=== PATIENT | female | born 1955 | race Caucasian/White ===

== ENCOUNTER 2019-11-20 12:10 | Outpatient (CLI) | payer MEDICARE, SELFPAY ==
--- NOTE | ~2019-11-20 | XR_ITS ---
XR lumbar spine 2-3V 11/20/2019 12:40 Indication: Low back pain Procedure: 3 views lumbar spine Comparison: 10/20/2012 Findings: Vertebral body heights are maintained. There is disc narrowing at L4-5 and L5-S1 with endpl ate degenerative change. There is moderate facet hypertrophy at L4-5 and L5-S1. No acute fracture or traumatic malalignment. There is atherosclerosis. Pedicles intact. Sacral foramen are symmetric. Impression: 1: Moderate-severe lumbar spondylosis. Reviewed, dictated and finalized at location A. Impression: 1: Moderate-severe lumbar spondylosis.
--- NOTE | ~2019-11-20 | XR_ITS ---
EXAMINATION: XR_CERV2-3V_CR EXAM DATE: 11/20/2019 12:40 INDICATION: Cervical pain. TECHNIQUE: Cervical spine frontal, lateral, lateral swimmers, and open-mouth odontoid projections. There is no prior study for comparison. FINDINGS: There is no evidence of acute cervical fracture. The odontoid process is intact. Pre-dens space is normal. Prevertebral soft tissue is normal. There are no soft tissue abnormalities identi fied. The vertebral bodies are aligned. There is mild to moderate disc disease at C5-6 and 6-7, m ild at C4-5. There is moderate arthropathy at the mid cervical levels with some amount of neural fora harinder stenosis at C5-6 and 6-7. IMPRESSION: Mid cervical predominant spondylosis. Reviewed, dictated and finalized at location A.
== END 2019-11-20 12:11 | disposition home or self-care (01) ==
LOC: CHSIMG 12:12
PROVIDERS: PCP Internal Medicine; Visit Provider Internal Medicine
DX: M54.5 Low back pain (principal); M54.2 Cervicalgia
CPT/HCPCS: 72040; 72100

== ENCOUNTER 2020-01-29 13:48 | Outpatient (CLI) | payer MEDICARE, SELFPAY ==
[2020-01-29 14:08] LABS: Basophils Absolute Auto 0.04 K/mm3 (0.00-0.10); Basophils Percent Auto 0.5 % (0.0-1.0); Eosinophils Absolute Auto 0.13 K/mm3 (0.02-0.50); Eosinophils Percent Auto 1.5 % (1.0-6.0); Hematocrit 42.8 % (35.0-49.0); Hemoglobin 14.4 g/dL (12.0-15.0); Immature Granulocyte Absolute 0.02 K/mm3 (0.00-0.00); Immature Granulocyte Percent A 0.2 % (0.0-0.0); Lymphocytes Absolute Auto 2.86 K/mm3 (1.10-4.50); Lymphocytes Percent Auto 33.5 % (18.0-42.0); Mean Corpuscular HGB Conc 33.6 g/dL (32.0-36.0); Mean Corpuscular Hemoglobin 31.9 pg (27.0-31.0); Mean Corpuscular Volume 94.7 fL (78.0-102.0); Mean Platelet Volume 11.1 fl (9.2-11.8); Monocytes Absolute Auto 0.54 K/mm3 (0.10-0.90); Monocytes Percent Auto 6.3 % (2.0-11.0); Platelet Count Result 211 K/mm3 (150-420); Red Blood Count 4.52 M/mm3 (4.20-5.40); Red Cell Distribution Width 12.8 % (11.6-14.4); White Blood Count 8.6 K/mm3 (4.8-10.8)
[2020-01-29 14:10] LABS: Appearance Urine Clear (Clear); Bilirubin Urine Negative (Negative); Color Urine Yellow (Yellow); Glucose Urine UA Negative (Negative); Ketones Urine Negative (Negative); Leukocyte Esterase Ur 2+ (Negative); Nitrate Urine Negative (Negative); Protein Urine Negative (Negative); Urobilinogen Urine 0.2 mg/dL (0.2-1.0)
[2020-01-29 14:15] LABS: Add Urine Microscopic? YES; Bacteria Urine 1+ /hpf; Blood Urine Trace-Intact (Negative); RBC Urine 0-2 /hpf (0-2); Squamous Epithelial Cell Urine Rare /hpf (Few)
[2020-01-29 15:46] LABS: Alanine Aminotransferase 23 U/L (14-59); Albumin Level 3.9 g/dL (3.4-5.0); Alkaline Phosphatase 58 U/L (46-116); Anion Gap 6 mmol/L (8-16); Aspartate Amino Transferase 19 U/L (15-37); Bilirubin,Total 0.4 mg/dL (0.00-1.00); Blood Urea Nitrogen 11 mg/dL (7-18); Calcium 8.9 mg/dL (8.5-10.1); Carbon Dioxide 31 mmol/L (21-32); Chloride 103 mmol/L (98-108); Cholesterol 273 mg/dL (0-200); Estimated Glomerular Filt Rate > 60; Glucose 86 mg/dL (70-99); HDL Direct 58 mg/dL (40-60); LDL Cholesterol Calculated 203 mg/dL (<130); Osmolality Calculated 288 mOsm/kg (285-295); Sodium 140 mmol/L (136-145); Thyroid Stimulating Hormone 0.72 uIU/mL (0.36-3.74); Triglycerides 62 mg/dL (0-150)
== END 2020-01-29 13:49 | disposition home or self-care (01) ==
LOC: CHSLAB 13:51
PROVIDERS: PCP Internal Medicine; Visit Provider Internal Medicine
DX: E78.5 Hyperlipidemia, unspecified (principal); M81.0 Age-related osteoporosis without current pathological fracture; Z00.00 Encounter for general adult medical examination without abnormal findings
CPT/HCPCS: 36415; 80053; 80061; 81001; 84443; 85025

== ENCOUNTER 2020-01-31 13:08 | Outpatient (CLI) | payer MEDICARE, SELFPAY ==
--- NOTE | ~2020-01-31 | MM_ITS ---
EXAMINATION: MM screening [facility] BI w brittney HISTORY: Screening TECHNIQUE: Craniocaudal and mediolateral oblique 3-D tomosynthesis images were obtained and synthetic 2-D images were generated. CAD analysis was submitted and interpreted. COMPARISON: Comparison to multiple prior studies sequentially, with oldest reviewed study dated 04/21. BREAST PARENCHYMAL COMPOSITION: There are scattered areas of fibroglandular density. FINDINGS: There is no evidence of suspicious mass, calcification, or architectural distortion to sugg est malignancy in either breast. There has been no suspicious interval change. IMPRESSION: 1. No mammographic evidence of malignancy. 2. Recommend routine screening mammography in one year. BI-RADS Category 1: Negative Reviewed, dictated and finalized at location A.
--- NOTE | ~2020-01-31 | DEXA_ITS ---
BMD(1) Young-Adult(2) Age-Matched(3) Region (g/cm2) T-score Z-score WHO Classification L1 0.878 -2.1 -0.4 Osteopenia L2 0.965 -2.0 -0.3 Osteopenia L3 0.966 -2.0 -0.3 Osteopenia L4 1.252 0.3 2.0 Normal L1-L4 1.039 -1.3 0.4 Osteopenia Trend: L1-L4 Change vs Change vs Measured Age BMD(1) Baseline Previous Date [age]) (g/cm2) (%) (%) 01[age]31/2020 [age] 1.039 1.5 -2.3 04[birth year]06/2016 61.1 1.064 3.9* 3.9* 02/08/2014 59.0 1.024 baseline - * - Indicates significant change based on 95% confidence interval. 1 - Statistically 68% of repeat scans fall within 1SD (+- 0.010 g/cm2 for AP Spine L1-L4) 2 - [place] (Combined NHANES (ages 20-30) / To[employer]Time (ages 20-40)) AP Spine Reference Population (v112) 3 - Matched for Age, Weight (females 25-100 kg), Ethnic 11 - World Health Organization - Definition of Osteoporosis and Osteopenia for Women: Normal = T-score at or above -1.0 SD; Osteopenia = T-score between -1.0 and -2.5 SD; Osteoporosis = T-score at or below -2.5 SD; (WHO definitions only apply when a young healthy Women reference database is used to determine T-scores.) Printed: 01/31/2020 2:07:36 PM (13.60)76:3.00:50.00:12.0 0.00:9.54 0.60x1.05 20.6:%Fat=32.0% 0.00:0.00 0.00:0.00 Filename: [id number] Scan Mode: Standard;OneScan 37.0 REM ENTERPRISE [id number] BMD(1) Young-Adult(2,7) Age-Matched(3) Region (g/cm2) T-score Z-score WHO Classification Neck Left 0.764 -2.0 -0.4 Osteopenia Right 0.782 -1.8 -0.3 Osteopenia Mean 0.773 -1.9 -0.4 Osteopenia Difference 0.017 0.1 0.1 - Total Left 0.815 -1.5 -0.3 Osteopenia Right 0.813 -1.5 -0.3 Osteopenia Mean 0.814 -1.5 -0.3 Osteopenia Difference 0.002 0.0 0.0 - Hip [place] Length Comparison (mm) (Right = 105.3 mm) (Mean = 103.0 mm) (Left = 106.2 mm) Trend: Total Mean Change vs Change vs Measured Age BMD(1) Baseline Previous Date (years) (g/cm2) (%) (%) 01/31/2020 64.9 0.814 -6.2* -6.2* 02/08/2014 59.0 0.868 baseline - * - Indicates significant change based on 95% confidence interval. 1 - Statistically 68% of repeat scans fall within 1SD (+- 0.010 g/cm2 for DualFemur Total) 2 - [place] (Combined NHANES (ages 20-30) / [employer] (ages 20-40)) Femur Reference Population (v112) 3 - Matched for Age, Weight (females 25-100 kg), Ethnic 7 - DualFemur Total T-score difference is 0.0. Asymmetry is None. 11 - World Health Organization - Definition of Osteoporosis and Osteopenia for Women: Normal = T-score at or above -1.0 SD; Osteopenia = T-score between -1.0 and -2.5 SD; Osteoporosis = T-score at or below -2.5 SD; (WHO definitions only apply when a young healthy Women reference database is used to determine T-scores.) Printed: 01/31/2020 2:07:37 PM (13.60); Filename: [id number]; Right Femur; 17.2:%Fat=35.9%; Neck Angle (deg)= 59; Scan Mode: Standard 37.0 uGy; Left Femur; 17.1:%Fat=34.7%; Neck Angle (deg)= 68; Scan Mode: Standard 37.0 uGy mGenerator [id number] Deafuad Kasper, Your patient Emma Tracy completed a BMD test on 01/31/2020 using the mGenerator DXA System (analysis version: 13.60) manufactured by [employer]. The following summarizes the results of our evaluation. PATIENT BIOGRAPHICAL: Name: Timothy
== END 2020-01-31 13:09 | disposition home or self-care (01) ==
PROVIDERS: PCP Internal Medicine; Visit Provider Internal Medicine
DX: E78.5 Hyperlipidemia, unspecified (principal); M81.0 Age-related osteoporosis without current pathological fracture; Z00.00 Encounter for general adult medical examination without abnormal findings; Z12.31 Encounter for screening mammogram for malignant neoplasm of breast
CPT/HCPCS: 77063; 77067; 77080

== ENCOUNTER 2020-03-11 14:58 | Outpatient (RCR) | payer MEDICARE, SELFPAY ==
--- NOTE | 2020-03-11 15:44 | PTOPEVAL ---
Thank you for referring Emma Tracy to [facility].? The patient is scheduled to be seen for therapy? ____x/week for ___ weeks. Please review, sign, date and return this plan of care MAGDI. I agree with and certify that the following plan of care is medically necessary. Referring Physician Date Admitting Provider: Attending Provider: Josr Kasper MD Referring Provider: *PT Outpatient Evaluation Start: 03/11/20 15:06 Freq: Status: Active Protocol: Document 03/11/20 15:05 Josh (Rec: 03/11/20 15:41 [facility] [id number]) Therapy Assessment Status Assessment Status Assessment Status Evaluation Evaluation Information Problem Diagnosis R side radiculopathy Onset 03/03/20 Subjective Information patient reports she began Query Text:As Reported By Patient/ having symptoms about 2 months Family ago. she reports she was walking with her sister when she felt a great pain in her hip and down her R LE and had to sit down. she reports she recently started a steroid dose pack. she reports her pain pain is less in the R LE now due to this. she reports she was having pain from her lower back down the R LE to the outside of the R calf and foot. she reports she has no numbness, but pain reported. she reports she has increased pain with increased time performing standing and walking activites. Prior Level of Function Comments Additional Prior Level of Function patient likes to walk, and Comments prior to 2 months ago was very active and walked several times a day. Pain Assessment Timing of Pain Assessment Timing of Pain Assessment Assessment Pain Scale Pain Scale Used Numeric (1 - 10) Self Report Pain Assessment Right Lower Back Reported Pain Level 2 Pain Radiation Right Leg Pain Frequency Acute,Continuous Lowest Pain Intensity 2 Greatest Pain Intensity 10 Pain Aggravating Factors Exercise/Activity,Walking, Weight Bearing/Standing Pain Score Pain Score 2: Self Report Cervical and Lumbar ROM Lumbar ROM Lumbar Flexion Active Floor Query Text:Hands to: Lumbar Exte
--- NOTE | 2020-03-11 15:52 | PTOPEVAL ---
Thank you for referring Emma Tracy to [facility].? The patient is scheduled to be seen for therapy? ____x/week for ___ weeks. Please review, sign, date and return this plan of care MAGDI. I agree with and certify that the following plan of care is medically necessary. Referring Physician Date Admitting Provider: Attending Provider: Josr Kasper MD Referring Provider: *PT Outpatient Evaluation Start: 03/11/20 15:06 Freq: Status: Active Protocol: Document 03/11/20 15:05 Josh (Rec: 03/11/20 15:41 [facility] [id number]) Therapy Assessment Status Assessment Status Assessment Status Evaluation Evaluation Information Problem Diagnosis R side radiculopathy Onset 03/03/20 Subjective Information patient reports she began Query Text:As Reported By Patient/ having symptoms about 2 months Family ago. she reports she was walking with her sister when she felt a great pain in her hip and down her R LE and had to sit down. she reports she recently started a steroid dose pack. she reports her pain pain is less in the R LE now due to this. she reports she was having pain from her lower back down the R LE to the outside of the R calf and foot. she reports she has no numbness, but pain reported. she reports she has increased pain with increased time performing standing and walking activites. Prior Level of Function Comments Additional Prior Level of Function patient likes to walk, and Comments prior to 2 months ago was very active and walked several times a day. Pain Assessment Timing of Pain Assessment Timing of Pain Assessment Assessment Pain Scale Pain Scale Used Numeric (1 - 10) Self Report Pain Assessment Right Lower Back Reported Pain Level 2 Pain Radiation Right Leg Pain Frequency Acute,Continuous Lowest Pain Intensity 2 Greatest Pain Intensity 10 Pain Aggravating Factors Exercise/Activity,Walking, Weight Bearing/Standing Pain Score Pain Score 2: Self Report Cervical and Lumbar ROM Lumbar ROM Lumbar Flexion Active Floor Query Text:Hands to: Lumbar Exte
--- NOTE | 2020-03-25 11:56 | PCPTNOTE ---
03/25/20-pt cancelled appointment today, states power is out and can not get garage door open. -HM
--- NOTE | 2020-04-10 14:26 | PCRTNOTE ---
04/10/20-pt cancelled secondary to dental procedure and being on pain medication.-RAMIRO
--- NOTE | 2020-04-14 11:45 | PCPTNOTE ---
04/14/20- pt did not show for apt today. - HM
== END 2020-04-24 09:15 | disposition home or self-care (01) ==
LOC: CHSPT 14:58
PROVIDERS: PCP Internal Medicine; Visit Provider Internal Medicine
DX: M54.17 Radiculopathy, lumbosacral region (principal)
CPT/HCPCS: 97012; 97014; 97110; 97140; 97161; G0283

== ENCOUNTER 2020-03-18 18:34 | Emergency (ER) | payer MEDICARE, SELFPAY ==
[2020-03-18 19:12] VITALS: BP 130/98; PULSE 78; RESP 19; TEMP 36.2; O2SAT 98
--- NOTE | 2020-03-18 19:35 | ED.HA ---
HPI - Headache General Chief Complaint: Headache Stated Complaint: RIDDLE for weeks Time Seen by Provider: 03/18/20 19:20 History of Present Illness HPI Narrative: Patient is a 65-year-old female who presents the ER with headache. Reports is been constant for the last 3 to 4 months. It waxes and wanes in intensity. Prior to becoming very intense she will get a visual aura in her left visual field that is small vibrating blurred area. The pain will then be sharp and seems to be at the top of her head and over the center of her forehead. She also has developed some discomfort in the back of her neck near the occipital condyles. Patient has seen her primary care doctor and had an outpatient head CT that was negative. She has been referred to physical therapy for her neck discomfort. She has had no fevers or chills or sweats. No focal numbness or tingling in arm or leg. No focal weakness. Patient does have history of migraines. She has been taking [id number] medications without relief. Related Data Home Medications Medication Instructions Recorded Confirmed aspirin 81 mg tablet,delayed 81 mg PO DAILY 04/23/19 04/23/19 release Allergies Allergy/AdvReac Type Severity Reaction Status Date / Time No Known Allergies Allergy Unverified 04/23/19 09:47 Review of Systems Review of Systems: All systems reviewed & are unremarkable except as noted in HPI and below Constitutional: Constitutional: Denies chills, Denies fever(s) and Denies weakness Eyes: Eyes: Reports change in vision and Denies photophobia ENT: Denies nasal congestion and Denies sore throat Cardiovascular: Cardiovascular: Denies chest pain, Denies rapid heart rate and Denies radiating jaw, neck or arm pain Neurologic: Denies dizziness, Reports headache(s), Denies focal weakness and Denies numbness PMFSH Past Medical History Medical History (Updated 03/18/20 @ 20:33 by Ismael Roque MD) Anxiety and depression Hyperlipemia Migraines Surgical History Surgical History (Updated 05/21/19 @ 08:54 by Rae Donahue NP) History of adenoidectomy (~1966) History of appendectomy (~1964) History of hysterectomy (~1984) History of tonsillectomy (~1966) Family History Family History (Updated 04/23/19 @ 10:12 by Sara De La O) Father Acute myocardial infarction Social History Social History Smoking status: Current every day smoker Alcohol intake: never Gender identity (if verbalized by the patient): Female Exam Narrative: Exam Narrative: GENERAL: Well-appearing, well-nourished, and in no acute distress. HEAD: Normocephalic, atraumatic. EYES: PERRL and EOMI. NECK: Appears well muscular tenderness without spasm. Normal range of motion.. CHEST: Clear to auscultation. No respiratory distress. HEART: Regular rate and rhythm. Normal peripheral pulses. EXTREMITIES: Normal range of motion. No edema. NEURO: Alert and oriented x3. PSYCH: Normal mood and affect. Course Course Emergency Course: Headache resolved with Reglan/Benadryl/Toradol. Discharge home. Vital Signs Vital signs: Vital Signs Temperature 97.2 F L 03/18/20 19:12 Pulse Rate 78 03/18/20 19:12 Respiratory Rate 19 03/18/20 19:12 Blood Pressure 130/98 H 03/18/20 19:12 Pulse Oximetry 98 03/18/20 19:12 Temperature 97.2 F L 03/18/20 19:12 Pulse Rate 78 03/18/20 19:12 Respiratory Rate 19 03/18/20 19:12 Blood Pressure 130/98 H 03/18/20 19:12 Pulse Oximetry 98 03/18/20 19:12 Discharge Plan Discharge Clinical Impression: Migraine Patient Disposition: Home, Self-Care Condition: Stable Instructions: Migraine Headache (ED) Additional Instructions: Return to the ER if you have fever over 100.4 ?F, you lose consciousness, you have a seizure, you have additional concerns. Prescriptions: New uhzazknbkg-jrmjscwfckszl-ebwa [Fioricet] 50-300-40 mg capsule 1 cap PO TID PRN (Reason: pain) Qty: 20 RF: 0 No Action
[2020-03-18] MEDS: KETOROLAC 15 MG/ML VIAL (*BKC) IV PUSH (19:43)
[2020-03-18] MEDS: diphenhydrAMINE HCl INJ 50 MG/ML VIAL 25 MG IV PUSH (19:43)
[2020-03-18] MEDS: METOCLOPRAMIDE HCL INJ 10 MG/2 ML VIAL IV PUSH (19:44)
[2020-03-18] MEDS: SODIUM CHLORIDE 0.9% IV 500 ML 999 ML IV CONT (19:44)
[2020-03-18 20:50] VITALS: BP 132/80; PULSE 88; RESP 18; TEMP 36.7; O2SAT 99
== END 2020-03-18 20:51 | disposition home or self-care (01) ==
PROVIDERS: Emergency Provider Emergency Medicine; PCP Internal Medicine
DX: G43.909 Migraine, unspecified, not intractable, without status migrainosus (principal); Z79.82 Long term (current) use of aspirin; E78.5 Hyperlipidemia, unspecified; F17.200 Nicotine dependence, unspecified, uncomplicated
CPT/HCPCS: 96361; 96374; 96375; 99284; J1200; J1885; J2765; J7040

== ENCOUNTER 2021-01-01 12:24 | Outpatient (CLI) | payer MEDICARE, SELFPAY ==
--- NOTE | ~2021-01-01 | XR_ITS ---
EXAMINATION: XR hip RT min 2V DATE: 01/01/2021 14:14 INDICATION: Right hip pain. TECHNIQUE: 2 views of right hip were obtained. COMPARISON: Right hip radiographs 10/20/2012 FINDINGS: Bone alignment is normal. No fracture. Right hip joint space is normal. IMPRESSION: 1. Normal right hip. Reviewed, dictated and finalized at location A. IMPRESSION: 1. Normal right hip.
--- NOTE | ~2021-01-01 | CT_ITS ---
EXAMINATION: CT lung screening DATE: 01/01/2021 12:53 INDICATION: Lung cancer screening/ tobacco dependence NO COMPLAINTS/DOES SMOKE/NO BP ISSUES TECHNIQUE: Computed tomography (CT) of the chest was performed without intravenous contrast. Addition al 3D reconstructions utilizing coronal maximum intensity projection (MIP) were performed. Automated exposure control and iterative reconstruction technique were employed. The dose-length product was 62 .28 mGy-cm. COMPARISON: None FINDINGS: Mild to moderate upper lung predominant emphysema. Biapical pleural-parenchymal scarring with calcifi cations. No other suspicious pulmonary nodules, pneumonia, pulmonary edema or other pulmonary infiltr ates. No pleural effusion. Heart size is normal. Atherosclerotic coronary artery calcification. Thora cic aorta is normal in caliber. No pathologically enlarged thoracic lymphadenopathy. Mild thoracic de xtroscoliosis with mild spondylosis. IMPRESSION: 1. Lung-RADS category 2: Benign appearance or behavior. Continue annual screening with noncontrast lo w-dose chest CT in 12 months. 2. Mild to moderate emphysema. Reviewed, dictated and finalized at location A. IMPRESSION: 1. Lung-RADS category 2: Benign appearance or behavior. Continue annual screeni ng with noncontrast low-dose chest CT in 12 months. 2. Mild to moderate emphysema.
[2021-01-01 13:59] LABS: Basophils Absolute Auto 0.04 K/mm3 (0.00-0.10); Basophils Percent Auto 0.4 % (0.0-1.0); Eosinophils Absolute Auto 0.09 K/mm3 (0.02-0.50); Hematocrit 42.9 % (35.0-42.0); Hemoglobin 14.4 g/dL (11.7-13.8); Immature Granulocyte Absolute 0.02 K/mm3 (0.00-0.00); Immature Granulocyte Percent A 0.2 % (0.0-0.0); Lymphocytes Absolute Auto 3.11 K/mm3 (1.10-4.50); Lymphocytes Percent Auto 34.8 % (18.0-42.0); Mean Corpuscular HGB Conc 33.6 g/dL (32.0-36.0); Mean Corpuscular Hemoglobin 31.2 pg (27.0-31.0); Mean Corpuscular Volume 93.1 fL (78.0-102.0); Mean Platelet Volume 10.7 fl (9.2-11.8); Monocytes Absolute Auto 0.53 K/mm3 (0.10-0.90); Monocytes Percent Auto 5.9 % (2.0-11.0); Neutrophils Absolute Auto 5.2 K/mm3 (1.7-7.2); Neutrophils Percent Auto 57.7 % (50.0-70.0); Platelet Count Result 213 K/mm3 (150-420); Red Blood Count 4.61 M/mm3 (4.20-5.40); White Blood Count 8.9 K/mm3 (4.8-10.8)
[2021-01-01 14:07] LABS: Add Urine Microscopic? YES; Appearance Urine Clear (Clear); Bilirubin Urine Negative (Negative); Blood Urine 1+ (Negative); Color Urine Light Yellow (Yellow); Glucose Urine UA Negative (Negative); Ketones Urine Negative (Negative); Leukocyte Esterase Ur 1+ (Negative); Nitrate Urine Negative (Negative); Protein Urine Negative (Negative); Specific Grav Ur <= 1.005 (1.010-1.020); Urobilinogen Urine 0.2 mg/dL (0.2-1.0)
[2021-01-01 14:14] LABS: Bacteria Urine None seen /hpf; RBC Urine 0-2 /hpf (0-2); Squamous Epithelial Cell Urine Occasional /hpf (Few); WBC Urine 0-3 /hpf (0-3)
[2021-01-01 14:42] LABS: Alanine Aminotransferase 26 U/L (14-59); Albumin Level 4.1 g/dL (3.4-5.0); Alkaline Phosphatase 55 U/L (46-116); Anion Gap 11 mmol/L (8-16); Aspartate Amino Transferase 17 U/L (15-37); Bilirubin,Total 0.4 mg/dL (0.00-1.00); Blood Urea Nitrogen 10 mg/dL (7-18); Calcium 9.4 mg/dL (8.5-10.1); Carbon Dioxide 28 mmol/L (21-32); Chloride 103 mmol/L (98-108); Cholesterol 197 mg/dL (0-200); Estimated Glomerular Filt Rate > 60; Glucose 107 mg/dL (70-99); HDL Direct 64 mg/dL (40-60); LDL Cholesterol Calculated 119 mg/dL (<130); Osmolality Calculated 293 mOsm/kg (285-295); Potassium 3.9 mmol/L (3.5-5.1); Sodium 142 mmol/L (136-145); Thyroid Stimulating Hormone 0.92 uIU/mL (0.36-3.74); Total Protein 7.3 g/dL (6.4-8.2); Triglycerides 72 mg/dL (0-150)
[2021-01-01 14:54] LABS: CRP < 0.5 mg/dL (0.0-0.9)
== END 2021-01-01 12:25 | disposition home or self-care (01) ==
PROVIDERS: PCP Internal Medicine; Visit Provider Internal Medicine
DX: E78.5 Hyperlipidemia, unspecified (principal); F41.9 Anxiety disorder, unspecified; M25.551 Pain in right hip; Z12.2 Encounter for screening for malignant neoplasm of respiratory organs; Z87.891 Personal history of nicotine dependence
CPT/HCPCS: 36415; 71271; 73502; 80053; 80061; 81001; 84443; 85025; 86140

== ENCOUNTER 2021-01-05 14:12 | Outpatient (CLI) | payer MEDICARE, SELFPAY ==
[2021-01-05 14:25] LABS: Appearance Urine Clear (Clear); Bilirubin Urine Negative (Negative); Color Urine Light Yellow (Yellow); Glucose Urine UA Negative (Negative); Ketones Urine Negative (Negative); Leukocyte Esterase Ur Negative (Negative); Nitrate Urine Negative (Negative); Protein Urine Negative (Negative); Specific Grav Ur <= 1.005 (1.010-1.020); Urobilinogen Urine 0.2 mg/dL (0.2-1.0); pH Urine 6.5 (5.0-8.0)
[2021-01-05 14:43] LABS: Add Urine Microscopic? YES; Blood Urine Trace-lysed (Negative)
[2021-01-05 14:44] LABS: Bacteria Urine Trace /hpf; RBC Urine 0-2 /hpf (0-2); Squamous Epithelial Cell Urine Rare /hpf (Few); WBC Urine 0-3 /hpf (0-3)
== END 2021-01-05 14:13 | disposition home or self-care (01) ==
PROVIDERS: PCP Internal Medicine; Visit Provider Internal Medicine
DX: R31.9 Hematuria, unspecified (principal)
CPT/HCPCS: 81001; 87086; 88112

== ENCOUNTER 2021-04-17 08:47 | Outpatient (CLI) | payer MEDICARE, SELFPAY | END 2021-04-17 08:48 | disposition home or self-care (01) | LOC: CHSCARD 08:49 | PROVIDERS: PCP Internal Medicine; Visit Provider Internal Medicine | DX: R05.9 Cough, unspecified (principal); F17.200 Nicotine dependence, unspecified, uncomplicated | CPT/HCPCS: 94060; 94726; 94729; 95012 ==

== ENCOUNTER → 2021-09-17 13:49 | Outpatient (CLI) | payer MEDICARE, SELFPAY ==
--- NOTE | ~2021-09-17 | MM_ITS ---
EXAMINATION: MM screening [facility] BI w brittney HISTORY: Screening mammogram TECHNIQUE: Craniocaudal and mediolateral oblique 3-D tomosynthesis images were obtained and synthetic 2-D images were generated. CAD analysis was submitted and interpreted. COMPARISON: 01/31/2020, 01/22/2019, 09/08/2017 BREAST PARENCHYMAL COMPOSITION: There are scattered areas of fibroglandular density. FINDINGS: There is no suspicious mass, calcification, or architectural distortion to suggest malignan cy in either breast. There has been no suspicious interval change. IMPRESSION: 1. No mammographic evidence of malignancy. 2. Recommend routine screening mammography in one year. BI-RADS Category 1: Negative Reviewed, dictated and finalized at location A.
== END ==
PROVIDERS: PCP Internal Medicine; Visit Provider Internal Medicine
DX: Z12.31 Encounter for screening mammogram for malignant neoplasm of breast (principal)
CPT/HCPCS: 77063; 77067

== ENCOUNTER 2021-11-25 16:25 | Observation (INO) | payer MEDICARE, SELFPAY ==
--- NOTE | ~2021-11-25 | MR_ITS ---
EXAMINATION: MR brain/brain stem wo/w con DATE: 11/26/2021 08:18 INDICATION: Transient ischemic attack. Right facial weakness. Slurred speech. TECHNIQUE: Magnetic resonance imaging (MRI) of the brain and brainstem was performed without and with 12 mL MultiHance intravenous contrast. COMPARISON: Brain MRI 08/27/2017, head CT 11/25/2021 FINDINGS: There are scattered areas of nonspecific increased T2-weighted signal intensity in the cere bral white matter. There is no intracranial hemorrhage, acute infarction, or abnormal intracranial ma ss lesion. The ventricles are normal in size. The orbits are normal. There is mild mucosal thickening in the ethmoid sinuses. The mastoid air cells are normal. IMPRESSION: 1. Moderate nonspecific cerebral white matter disease, which likely represents chronic small vessel i schemic disease, worsened from 08/27/2017. Reviewed, dictated and finalized at location A. IMPRESSION: 1. Moderate nonspecific cerebral white matter disease, which likely represents chronic small vessel ischemic disease, worsened from 08/27/2017.
--- NOTE | ~2021-11-25 | XR_ITS ---
EXAMINATION: XR chest 1V portable 11/25/2021 16:46 INDICATION: Slurred speech. Dyspnea. PROCEDURE: AP portable chest COMPARISON: 12/30/2016 FINDINGS: The lungs are clear. The cardiomediastinal silhouette is within normal limits. There are no pleural effusions. There is no pneumothorax suspected. Generalized osteopenia. IMPRESSION: 1: NO ACUTE CARDIOPULMONARY DISEASE. Reviewed, dictated and finalized at location B.
--- NOTE | ~2021-11-25 | US_ITS ---
EXAMINATION: US carotid duplex BI DATE: 11/26/2021 08:39 INDICATION: Right facial weakness. Slurred speech. Transient ischemic attack. TECHNIQUE: Grayscale, color Doppler, and pulsed Doppler images of the cervical carotid arteries were obtained. The degree of vessel stenosis is placed in one of the following categories: normal, <50%, 5 0-69%, >=70% but less than near-occlusion, near-occlusion, or total occlusion. Note that percent sten osis relative to normal distal artery lumen diameter is indirectly measured from velocity measurement s as described by Brodie, et al. Radiology 2003; 229:340-346. COMPARISON: None. FINDINGS: RIGHT: The right common carotid artery (CCA) peak systolic velocity (PSV) is 79 cm/s. The right internal car otid artery (ICA) PSV is 98 cm/s. The right ICA end-diastolic velocity (EDV) is 25 cm/s. The right IC A/CCA PSV ratio is 1.2. Grayscale and color Doppler images yield an estimate of <50% diameter reducti on from plaque in the ICA. There is antegrade flow in the right vertebral artery. LEFT: The left CCA PSV is 68 cm/s. The left ICA PSV is 164 cm/s. The left ICA EDV is 30 cm/s. The left ICA/ CCA PSV ratio is 2.4. Grayscale and color Doppler images yield an estimate of <50% diameter reduction from plaque in the ICA. There is antegrade flow in the left vertebral artery. IMPRESSION: 1. <50% stenosis in the right internal carotid artery. 2. <50% stenosis in the left internal carotid artery. Reviewed, dictated and finalized at location A.
--- NOTE | ~2021-11-25 | CT_ITS ---
EXAMINATION: CT brain wo con DATE: 11/25/2021 16:36 INDICATION: Slurred speech beginning at 1600 hours today TECHNIQUE: Computed tomography (CT) of the head was performed without intravenous contrast. The mA wa s adjusted according to patient size. Iterative reconstruction technique was employed. Exam dose: 60 5.33 mGy-cm total exam DLP. COMPARISON: 09/05/2017 CT head FINDINGS: Vertebral, basilar and bilateral carotid siphon internal carotid artery calcifications are noted. There is patchy nonspecific diminished attenuation of the cerebral white matter, likely due to chronic small vessel ischemic changes. No intracranial mass lesion or hemorrhage or cerebrovascular accident is noted. Normal ventricular si ze. No midline shift or mass effect effect. No subdural or epidural hematoma. No skull fracture or bone destruction of the cranial vault. Included mastoid air cells and paranasal sinuses are normally developed and aerated. IMPRESSION: Cerebral atherosclerosis and chronic small vessel ischemic changes of the cerebral white matter No acute intracranial finding Dr. Madrid telephoned the CT head report on 11/25/2021 at 1640 hours to emergency room physician Dr. Garo brothers. Reviewed, dictated and finalized at Location [facility]. Reviewed, dictated and finalized at location A. IMPRESSION: Cerebral atherosclerosis and chronic small vessel ischemic changes of the cerebral white matter No acute intracranial finding Dr. Madrid telephoned the CT head report on 11/25/2021 at 1640 hours to emergency r oom physician Dr. Esparza.
--- NOTE | 2021-11-25 16:28 | ECG_ITS ---
Measurements Intervals [place] Rate: 70 P: 73 WV: 126 QRS: 55 QRSD: 93 T: 65 QT: 402 QTc: 434 Interpretive Statements SINUS RHYTHM POSSIBLE RIGHT VENTRICULAR CONDUCTION DELAY [RSR (QR) IN V1/V2] NO PREVIOUS ECG AVAILABLE FOR COMPARISON Electronically Signed On 11-25-2021 22:18:59 CDT by Haydee Mack M.D.
[2021-11-25 16:35] VITALS: BP 110/60; PULSE 69; RESP 19; TEMP 36.2; O2SAT 98
[2021-11-25 16:35] LABS: Glucose Point of Care 70 mg/dl (65-105)
[2021-11-25 16:41] LABS: Basophils Percent Auto 0.5 % (0.2-1.2); Eosinophils Absolute Auto 0.1 K/mm3 (0-0.3); Eosinophils Percent Auto 1.3 % (0-4.4); Hematocrit 44.4 % (37.0-47.0); Hemoglobin 14.6 g/dL (12.0-15.0); Immature Granulocyte Absolute 0.02 K/mm3 (0.00-0.031); Immature Granulocyte Percent A 0.2 % (0-0.5); Lymphocytes Absolute Auto 3.13 K/mm3 (0.9-3.2); Lymphocytes Percent Auto 36.4 % (18.3-44.2); Mean Corpuscular HGB Conc 32.9 g/dl (32-36); Mean Corpuscular Hemoglobin 31.7 pg (26-34); Mean Corpuscular Volume 96.3 fl (80-100); Mean Platelet Volume 10.8 fl (7.4-10.4); Monocytes Absolute Auto 0.6 K/mm3 (0.1-0.6); Monocytes Percent Auto 7.3 % (2.6-8.5); Neutrophils Absolute Auto 4.7 K/mm3 (1.3-6.7); Neutrophils Percent Auto 54.3 % (45.5-73.1); Platelet Count Result 227 k/mm3 (150-375); Red Blood Count 4.61 M/mm3 (4.2-5.4); Red Cell Distribution Width 12.8 % (11.5-14.5); White Blood Count 8.6 K/mm3 (4.5-10.0)
[2021-11-25 16:42] VITALS: BP 110/60; PULSE 75; RESP 18
[2021-11-25 16:51] LABS: Alanine Aminotransferase 13 U/L (6-35); Albumin Level 4.6 g/dL (3.5-5.1); Alkaline Phosphatase 58 U/L (38-126); Anion Gap 7 mmol/L (8-16); Aspartate Amino Transferase 20 U/L (14-36); Bilirubin,Total 0.3 mg/dL (0.2-1.3); Blood Urea Nitrogen 11 mg/dL (7-17); Calcium 8.8 mg/dL (8.4-10.2); Carbon Dioxide 28 mmol/L (22-30); Chloride 102 mmol/L (98-107); Estimated CRCL calculation 50 ml/min; Estimated Glomerular Filt Rate > 60; Glucose 78 mg/dL (65-110); Potassium 3.7 mmol/L (3.4-5.0); Sodium 137 mmol/L (137-145)
[2021-11-25 16:52] LABS: INR 0.9; Partial Thromboplastin Time 33.4 SECONDS (22.3-36.8); Prothrombin Time 11.5 Seconds (11.1-14.7)
[2021-11-25 17:02] LABS: Troponin I < 0.012 ng/mL (0.000-0.034)
--- NOTE | 2021-11-25 17:27 | PC.NURSE ---
dinner tray ordered
[2021-11-25 17:37] VITALS: BP 111/61; PULSE 71; RESP 18; O2SAT 100
--- NOTE | 2021-11-25 17:41 | ED.NEUROSD ---
HPI - Neuro Symptoms/Deficit General Chief Complaint: Suspected CVA Stated Complaint: difficulty talking at 1600 Source: patient Mode of arrival: wheelchair Limitations: no limitations History of Present Illness HPI Narrative: 66-year-old with a history of anxiety, hyperlipidemia, migraine headaches brought in by daughter with complaints of right-sided facial droop. Patient states that she was face timing with her daughter, daughter noticed her speech was slurred and patient was unable to get the words out. She also states that her right side of her face was drooping. She denies any headache, blurred vision or weakness Related Data Home Medications Medication Instructions Recorded Confirmed aspirin 81 mg tablet,delayed 81 mg PO DAILY 04/23/19 04/23/19 release Allergies Allergy/AdvReac Type Severity Reaction Status Date / Time cimetidine [From Everyday[employer]me] Allergy Swelling Verified 11/25/21 16:39 of Lip/Tongue/Throat Penicillins AdvReac Blister Verified 11/25/21 16:39 Review of Systems Review of Systems: All systems reviewed & are unremarkable except as noted in HPI and below Constitutional: Constitutional: Reports no additional constitutional complaints Eyes: Eyes: Reports no additional eye complaints ENT: Reports system reviewed and no additional complaints, except as documented Cardiovascular: Cardiovascular: Reports no additional cardiovascular complaints Respiratory: Respiratory: Reports no additional respiratory complaints Gastrointestinal: Gastrointestinal: Reports no additional gastrointestinal complaints Musculoskeletal: Musculoskeletal: Reports no additional musculoskeletal complaints Neurologic: Reports as per HPI PMFSH Past Medical History Medical History Anxiety and depression Hyperlipemia Migraines Surgical History Surgical History History of adenoidectomy (~1966) History of appendectomy (~1964) History of hysterectomy (~1984) History of tonsillectomy (~1966) Family History Family History Father Acute myocardial infarction Social History Social History Smoking status: Current every day smoker Alcohol intake: never Gender identity (if verbalized by the patient): Female Exam Narrative: GENERAL: Well-appearing, well-nourished, and in no acute distress. HEAD: Normocephalic, atraumatic. EYES: PERRLA and EOMI. ENT: Nares clear, no rhinorrhea or epistaxis. Mucous membranes moist. NECK: Supple. CHEST: Clear to auscultation. No respiratory distress. HEART: Regular rate and rhythm. No murmur heard. Normal peripheral pulses. ABDOMEN: Soft, nontender, nondistended, normal active bowel sounds. EXTREMITIES: Normal range of motion. No edema. SKIN: Warm, dry, no rash. NEURO: No focal deficits. Alert and oriented x3. PSYCH: Normal mood and affect. Course Course Emergency Course: Patient upon arrival is wide awake alert ambulatory with no facial droop CT scan was done immediately with no acute findings her NIH score is 0 upon arrival and remained 0 I did inform patient and family about her lab work, CT findings agreed for admission. Discussed with [place] agreed to admit the patient for observation Vital Signs Vital signs: Vital Signs Temperature 36.2 C L 11/25/21 16:35 Pulse Rate 69 11/25/21 16:35 Respiratory Rate 19 11/25/21 16:35 Blood Pressure 110/60 11/25/21 16:35 Pulse Oximetry 98 11/25/21 16:35 Temperature 36.2 C L 11/25/21 16:35 Pulse Rate 71 11/25/21 17:37 Respiratory Rate 18 11/25/21 17:37 Blood Pressure 111/61 11/25/21 17:37 Pulse Oximetry 100 11/25/21 17:37 MDM - Neuro Symptoms/Deficit Differential Diagnosis Differential diagnosis: Likely cerebrovascular accident and transient cerebral ischemia Medic
[2021-11-25 18:41] VITALS: BP 125/72; PULSE 71; RESP 18; O2SAT 100
--- NOTE | 2021-11-25 19:24 | ADMGEN ---
This patient, Emma Strauss, was admitted to 2 Medical Room 242-. Patient/family oriented to hospital policies and general routines including ID bracelet, bed and alarms, visiting hours, pain management, procedures, bathroom and other care routines, personal items, smoking policy, room service/diet, and visiting hours. Information on how to activate the Rapid Response Team has been discussed. Patient/Family are encouraged to report perceived risks to care and to ask questions if they do not understand what they are told or what they should do.
[2021-11-25] MEDS: SODIUM CHLORIDE 0.9% IV 1,000 ML 75 ML IV CONT (19:38)
[2021-11-25 20:00] VITALS: PULSE 73
[2021-11-25 22:00] VITALS: BP 104/77; PULSE 81; RESP 18; TEMP 36.6; O2SAT 95
[2021-11-26] VITALS: PULSE 63
[2021-11-26 04:00] VITALS: PULSE 65
--- NOTE | 2021-11-26 05:07 | PM.IMHP ---
H&P: HPI History of Present Illness Date/Time: 11/26/21 05:07 Chief Complaint: Garbled speech Narrative: 66-year-old female with past medical history of migraines, anxiety, depression and hyperlipidemia who presented to the ER from home with history of garbled speech S transient in nature. Patient reported that she does not know if she was having any symptoms before he talked to her daughter at 4:00 p.m. but when her daughter called at 4:00 p.m. she could not understand the patient. She stated that she was slurring her words in her speech was garbled. She did not have any difficulty finding her words she does could not get them out clearly. Her symptoms persisted until just before she came to the ER. She did not have any associated headache. The patient denied having a facial droop but the patient's daughter reported that she thought the patient's right side of her face was drooping. She has not had any headache, blurred vision or weakness. She reports that she occasionally see some weekly lines in arrive before she has a migraine. But she has not had any symptoms of her usual migraine. She denies any localizing weakness. She has been ambulating without difficulty. She denies any difficulty swallowing or coughing. She did have 1 episode of similar symptoms in the past. She reports that she recently lost her significant other of 13 years in November after a 4 year dover with lung cancer. She was his primary caregiver. She has been having some depressive symptoms and acute grieving since that time. She reports that she does want to quit smoking but did not tolerate Chantix. She reported that Chantix made her mean and aggressive. Review of Systems Review of Systems: 12 systems were reviewed with pertinent positives and negatives per HPI. Except as documented in the HPI, all other systems were reviewed and are negative. [facility] Past Medical History Medical History (Updated 11/26/21 @ 08:07 by Ann Staples DO) Anxiety and depression COPD (chronic obstructive pulmonary disease) Hyperlipemia Migraines Osteopenia Postmenopausal atrophic vaginitis Surgical History Surgical History (Updated 11/26/21 @ 07:56 by Ann Staples DO) History of adenoidectomy (~1966) History of appendectomy (~1964) History of hysterectomy (~1984) Due to endometriosis with associated unilateral oophorectomy History of tonsillectomy (~1966) Family History Family History Father Acute myocardial infarction Social History Social History (Updated 11/26/21 @ 08:00 by Ann Staples DO) Social History: She lives at home with her small dog. She is . She raised 2 sons and 1 daughter. She is independent activities of daily living. She continues to smoke a pack of cigarettes per day and has done so since she was teenager. She denies any significant alcohol use. 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 Code status: Full code Smoking packs per day: 1 Smoking cigarettes per day: 20.0 Years smoked: 50 Smoking pack-years: 50.00 Smoking status: Current every day smoker Alcohol intake: never Substance use: never Gender identity (if verbalized by the patient): Female Spiritual care concerns: No Meds Home Medications and Allergies Home Medications Medication Instructions Recorded Confirmed Type cholecalciferol (vitamin D3) 25 1,000 unit PO DAILY #90 caps 04/23/19 11/25/21 Rx mcg (1,000 unit) capsule escitalopram oxalate 20 mg tablet 20 mg PO DAILY #90 tabs 04/23/19 11/25/21 Rx (Lexapro) pravastatin 10 mg tablet 10 mg PO DAILY #90 tabs 04/23/19 11/25/21 Rx alprazolam 0.5 mg tablet 0.25 mg PO BID PRN anxiety 11/25/21 11/25/21 History Allergies Allergy/AdvReac Type Severity Reaction Status Date / Time cimetidine [From [facility]] Allergy Swelling Verified 11/25/21 16:39 of Lip/Tongue/Throat Penicillins AdvReac Blister Verified 11/25/21
[2021-11-26 06:00] VITALS: BP 118/54; PULSE 69; RESP 16; TEMP 36.2; O2SAT 94
[2021-11-26] MEDS: ASPIRIN 81 MG CHEWABLE TABLET PO (08:50)
[2021-11-26] MEDS: PRAVASTATIN SODIUM 10 MG TABLET PO (08:50)
[2021-11-26] MEDS: ESCITALOPRAM OXALATE 10 MG TABLET 20 MG PO (08:50)
[2021-11-26] MEDS: SODIUM CHLORIDE 0.9% IV 1,000 ML 75 ML IV CONT (08:51)
[2021-11-26] MEDS: CHOLECALCIFEROL 1,000 UNITS TABLET 1000 UNITS PO (08:51)
--- NOTE | 2021-11-26 12:00 | WPDNEURCNPN ---
Assessment and Plan Assessment and plan (1) TIA (transient ischemic attack): Code(s): G45.9 - Transient cerebral ischemic attack, unspecified Status: Acute Plan TIA with negative MRI of the brain and observed neurological deficit by the family member present negative evaluation as well he be continued on aspirin Consult date: 11/26/21 Time Seen: 10:00 Reason for consult: Possible cerebrovascular accident HPI: Emma Strauss is a 66 year old female admitted to the hospital through the emergency room where she came with the complaints of difficulties in speech without any other limitations but in addition to history of 1. Anxiety 2. Hyperlipidemia 3. Migraine headaches she was brought in by her daughter with the complaints of right-sided facial droop and as per the information available she was face timing with her daughter when she noted her speech was slurred she was unable to get the words out and her right side of the face was drooped she had no associated headache blurred vision or weakness of 1 side or other side. She has been taking aspirin 81 mg daily she does have ongoing history of anxiety and depression with migraines and hyperlipidemia, initial exam by the ER personnel was normal including the vital signs, routine lab was also normal, EKG was without atrial fibrillation x-ray was negative and the CT scan of the head revealed only chronic small vessel ischemic changes of cerebral white matter, her stroke scale was only 1, subsequently she has had Doppler study of the carotid which is normal that is less than 50% stenosis of the bilateral internal carotid arteries and MRI of the brain documented no territorial stroke epidural subdural bleed Review of Systems Review of Systems: All systems reviewed & are unremarkable except as noted in HPI and below PMFSH Past Medical History Medical History Anxiety and depression COPD (chronic obstructive pulmonary disease) Hyperlipemia Migraines Osteopenia Postmenopausal atrophic vaginitis Surgical History Surgical History History of adenoidectomy (~1966) History of appendectomy (~1964) History of hysterectomy (~1984) Due to endometriosis with associated unilateral oophorectomy History of tonsillectomy (~1966) Family History Family History Father Acute myocardial infarction Social History Social History Social History: She lives at home with her small dog. She is . She raised 2 sons and 1 daughter. She is independent activities of daily living. She continues to smoke a pack of cigarettes per day and has done so since she was teenager. She denies any significant alcohol use. 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 Code status: Full code Smoking packs per day: 1 Smoking cigarettes per day: 20.0 Years smoked: 50 Smoking pack-years: 50.00 Smoking status: Current every day smoker Alcohol intake: never Substance use: never Gender identity (if verbalized by the patient): Female Spiritual care concerns: No Meds Home Medications and Allergies Home Medications Medication Instructions Recorded Confirmed Type cholecalciferol (vitamin D3) 25 1,000 unit PO DAILY #90 caps 04/23/19 11/25/21 Rx mcg (1,000 unit) capsule escitalopram oxalate 20 mg tablet 20 mg PO DAILY #90 tabs 04/23/19 11/25/21 Rx (Lexapro) pravastatin 10 mg tablet 10 mg PO DAILY #90 tabs 04/23/19 11/25/21 Rx alprazolam 0.5 mg tablet 0.25 mg PO BID PRN anxiety 11/25/21 11/25/21 History Allergies Allergy/AdvReac Type Severity Reaction Status Date / Time cimetidine [From [facility]] Allergy Swelling Verified 11/25/21 16:39 of Lip/Tongue/Throat Penicillins AdvReac Blister Verified 11/25/21 16:39 Vital Signs Vital Signs - 24 hr 11/25/21 16:35 11/25/21
[2021-11-26 14:40] VITALS: BP 108/47; PULSE 65; RESP 16; TEMP 36.7; O2SAT 97
[2021-11-26 15:37] LABS: Cholesterol 183 mg/dL (0-200); HDL Direct 48 mg/dL; Triglycerides 97 mg/dL (<150)
[2021-11-26 15:47] LABS: LDL Cholesterol Direct 94 mg/dL
[2021-11-26 15:54] LABS: Hemoglobin A1C 5.2 % (<5.7)
--- NOTE | 2021-11-26 16:09 | PM.DS ---
DS: Admitting Diagnosis Discharge Date 11/26/2021 Admitting Diagnosis TIA DS: Discharge Diagnosis Discharge Diagnosis (1) TIA (transient ischemic attack): Code(s): G45.9 - Transient cerebral ischemic attack, unspecified Status: Acute Assessment and Plan: Patient had symptoms concerning for TIA. Stated her speech ?just was not coming out right. Neurologic status was at baseline on presentation to the ED and during admission. NIH score [address] showed no acute intracranial findings, carotid Doppler with <50% stenosis of the bilateral internal carotid arteries, brain MRI with no acute findings. She was seen in consultation by Neurology. Symptoms felt to be consistent with TIA. ABCD2 score = 3. She was started on aspirin 81 mg daily. Lipid panel reviewed. Continue pravastatin. Discussed dietary and lifestyle modifications. (2) Tobacco use disorder, continuous: Code(s): F17.209 - Nicotine dependence, unspecified, with unspecified nicotine-induced disorders Status: Acute Assessment and Plan: She smokes 1 pack per day. She is motivated to quit smoking, however she is actively grieving the loss of her significant other and therefore not the ideal time to begin smoking cessation journey as she is less likely to be successful given her current stressors. She was unsuccessful with Chantix. She would like to try Wellbutrin. She should follow-up with her primary care provider to determine the best time to initiate this regimen. She was educated on smoking cessation for 5 minutes. 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 She is grieving this loss admits that this has been stressful for her, especially with her history of depression and anxiety. She does report that she has good family support to help her through this time. She specifically denies thoughts of harming herself. Continue escitalopram. DS: Summary Hospital Course Hospital Course: Date of admission: 11/25/2021 Date of discharge: 11/26/2021 Emma Tracy is a 66-year-old female with history of anxiety, depression, hyperlipidemia, COPD who presented to the emergency department on 11/25/2021 with complaints of slurred speech in possibly right-sided facial droop. On presentation to the ED, her vital signs are stable, laboratory workup unremarkable, NIH score was 0, and head CT showed no acute findings. She was admitted to the hospitalist service for further evaluation and management and was seen in consultation by Neurology. Please see above for further details. The patient was back at her baseline and was very eager for discharge home. Given overall improvement, she was determined to no longer require inpatient care and was discharged in hemodynamically stable condition on 11/26/2021. Discussed with the patient worrisome signs and symptoms for which to return and she was educated on her medications. She will follow-up with her primary care provider in 1 week. 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
== END 2021-11-26 17:05 | disposition home or self-care (01) ==
LOC: ANHED 17:47 → ANH2MED 18:26
PROVIDERS: Physician Assistant; Admitting Provider Student in an Organized Health Care Education/Training Program; Emergency Provider Family Medicine; PCP Internal Medicine; Visit Provider Internal Medicine
DX: G45.9 Transient cerebral ischemic attack, unspecified (principal); E78.5 Hyperlipidemia, unspecified; Z79.82 Long term (current) use of aspirin; F43.21 Adjustment disorder with depressed mood; F17.210 Nicotine dependence, cigarettes, uncomplicated
CPT/HCPCS: 36415; 70450; 70553; 71045; 80053; 80061; 82948; 83036; 84484; 85025; 85610; 85730; 93005; 93880; 96360; 96361; 99285; A9270; A9577; G0378; J7030

== ENCOUNTER → 2022-03-11 11:48 | Outpatient (CLI) | payer MEDICARE, SELFPAY ==
--- NOTE | ~2022-03-11 | DEXA_ITS ---
Bone Density Report Name: WIN WILLIAMSON Age: 67 Sex: Female Ethnicity: White Date of : 1955 Indication: postmenopausal; screening for osteoporosis; parental hip fracture; hysterectomy; Referring Provider: Josr Kasper Study: Bone densitometry was performed. Exam Date: March 11, 2022 Accession number: [id number] Bone Density: Region BMD T-score Z-score Classification AP Spine (L1-L4) 0.853 -1.8 0.1 Osteopenia Femoral Neck (Left) 0.592 -2.3 -0.7 Osteopenia Total Hip (Left) 0.748 -1.6 -0.3 Osteopenia Femoral Neck (Right) 0.621 -2.1 -0.4 Osteopenia Total Hip (Right) 0.761 -1.5 -0.1 Osteopenia Total Hip Mean 0.755 -1.6 -0.2 Osteopenia World Health Organization criteria for BMD impression classify patients as: Normal (T-score at or above -1.0), Osteopenia (T-score between -1.0 and -2.5), or Osteoporosis (T-score at or below -2.5). 10-year Fracture Risk(1): Major Osteoporotic Fracture 20% Hip Fracture 5.4% Reported Risk Factors: [place] (), Neck BMD=0.592, BMI=22.4, parental fracture, smoking (1) FRAX(R) Version 3.08. Fracture probability calculated for an untreated patient. Fracture probability may be lower if the patient has received treatment. Clinical Information Provided by Patient: Parent has had a hip fracture Smokes Has used the following medications: Vitamin D Has the following medical conditions: Hysterectomy Patient maximum height was 63.0 Menopause Age: 33 Drinks caffeinated beverages Onset of menses at age 14 Number of children 3 Impression: The patient has low bone mass, based on the Left Femoral Neck T-score. The patient has an estimated ten-year risk of hip fracture of 5.4% and an estimated ten-year risk of major fracture of 20%, based on the WHO FRAX algorithm. The patient has risk factors, including: parental hip fracture, smoking. Discussion: BONE DENSITY IS LOW AT ONE OR MORE SKELETAL SITES. THE PATIENT'S BMD AND CLINICAL RISK FACTORS CONTRIBUTE TO THIS PATIENT'S HIGH RISK OF FRACTURE. This patient's lowest T-score is low at one or more skeletal sites. It meets the World Health Organization's (WHO) criteria for ?low bone mass? (T-score between -1.0 and -2.5). The patient's 10-year risk of hip fracture and 10 year risk of a major osteoporotic fracture as calculated by FRAX exceeds the threshold where pharmacological therapy is recommended by the National Osteoporosis Foundation (NOF). However, all treatment decisions require clinical judgment and consideration of individual patient factors, including patient preferences, comorbidities, previous drug use, risk factors not captured in the FRAX model (e.g., frailty, falls, vitamin D deficiency, increased bone turnover, interval significant decline in bone density) and possible under or overestimation of fractu
== END ==
PROVIDERS: PCP Family Medicine Sports Medicine; Visit Provider Internal Medicine
DX: M81.0 Age-related osteoporosis without current pathological fracture (principal); M85.88 Other specified disorders of bone density and structure, other site; M85.852 Other specified disorders of bone density and structure, left thigh; M85.851 Other specified disorders of bone density and structure, right thigh
CPT/HCPCS: 77080

== ENCOUNTER 2022-04-15 04:37 | Emergency (ER) | payer MEDICARE, SELFPAY ==
--- NOTE | ~2022-04-15 | CT_ITS ---
EXAMINATION: CT brain wo con DATE: 04/15/2022 06:14 INDICATION: Headache TECHNIQUE: Computed tomography (CT) of the head was performed without intravenous contrast. Sagittal and coronal reconstructions were performed. The mA was adjusted according to patient size. Iterative reconstruction technique was employed. The dose-length product was 605.33 mGy-cm. COMPARISON: Head CT and brain MR dated 11/25/2021 FINDINGS: There is moderate scattered white matter hypoattenuation consistent with chronic small vessel ischemi c disease. No acute intracranial hemorrhage, acute infarction or abnormal extra axial fluid collectio n. Ventricles are normal and symmetric. No mass/mass effect. Intracranial calcified cerebral atherosc lerosis is noted. The orbits, paranasal sinuses and mastoid air cells are normal. IMPRESSION: 1. Unchanged moderate scattered white matter hypoattenuation consistent with chronic small vessel isc hemic disease. No acute intracranial process. Reviewed, dictated and finalized at location A. IMPRESSION: 1. Unchanged moderate scattered white matter hypoattenuation consistent with ch ronic small vessel ischemic disease. No acute intracranial process.
[2022-04-15 04:42] VITALS: BP 118/44; PULSE 87; RESP 18; TEMP 36.6; O2SAT 95
[2022-04-15 04:45] VITALS: BP 116/51
--- NOTE | 2022-04-15 05:34 | PC.NURSE ---
pt. reports top of head pain, neck pain and vomiting once. pt. family reports pt. has been confusing words. pt. last known normal is 04/14/22 1400. no slurred speech, facial droop or unilateral weakness noted.
--- NOTE | 2022-04-15 05:43 | ED.GENADULT ---
HPI - General Adult General Chief complaint: Unspecified <Austin Garnett MD - Last Filed: 04/15/22 06:38> Stated complaint: vomiting <Austin Garnett MD - Last Filed: 04/15/22 06:38> Time Seen by Provider: 04/15/22 09:22 <Austin Garnett MD - Last Filed: 04/15/22 06:38> History of Present Illness HPI narrative: Patient is a 67-year-old female who presents the emergency department with chief complaint of neck pain radiating into the head. Patient states that yesterday during the day that she had an episode where she was having difficulty getting the words out but she was talking the patient reported no weakness in her arms or legs when this happened the patient reports she has had some nausea the patient reports that she has had episodes in the past similar to this and was told that most likely she was having a complicated migraine. The patient states that it does not feel like a typical migraine but does feel similar to these previous episodes. <Austin Garnett MD - Last Filed: 04/15/22 06:38> Related Data Home medications: Home Medications Medication Instructions Recorded Confirmed alprazolam 0.5 mg tablet 0.25 mg PO BID PRN anxiety 11/25/21 02/16/22 doxycycline hyclate 100 mg tablet 100 mg PO DAILY 02/16/22 02/16/22 [id number] 3.5 4 drp EACH EAR Q8H 02/16/22 02/16/22 mg/mL-10,000 unit/mL-1 % ear solution <Austin Garnett MD - Last Filed: 04/15/22 06:38> Allergies/adverse reactions: Allergies Allergy/AdvReac Type Severity Reaction Status Date / Time cimetidine [From Replaced By [facility]] Allergy Swelling Verified 04/15/22 04:41 of Lip/Tongue/Throat Penicillins AdvReac Blister Verified 04/15/22 04:41 <Austin Garnett MD - Last Filed: 04/15/22 06:38> Review of Systems Review of Systems: A 10 system review of systems was completed on the patient and is negative except for what is stated in the HPI. Nursing and ancillary documentation was reviewed. <Austin Garnett MD - Last Filed: 04/15/22 06:38> PMFSH Past Medical History Medical History: Medical History Anxiety and depression COPD (chronic obstructive pulmonary disease) Hyperlipemia Migraines Osteopenia Postmenopausal atrophic vaginitis <Austin Garnett MD - Last Filed: 04/15/22 06:38> Surgical History Surgical History: Surgical History History of adenoidectomy (~1966) History of appendectomy (~1964) History of hysterectomy (~1984) Due to endometriosis with associated unilateral oophorectomy History of tonsillectomy (~1966) <Austin Garnett MD - Last Filed: 04/15/22 06:38> Family History Family History: Family History Father Acute myocardial infarction <Austin Garnett MD - Last Filed: 04/15/22 06:38> Social History Social History: Social History Social History: She lives at home with her small dog. She is . She raised 2 sons and 1 daughter. She is independent activities of daily living. She continues to smoke a pack of cigarettes per day and has done so since she was teenager. She denies any significant alcohol use. 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 Code status: Full code Smoking packs per day: 1 Smoking cigarettes per day: 20.0 Years smoked: 50 Smoking pack-years: 50.00 Smoking status: Current every day smoker Alcohol intake: never Substance use: never Gender identity (if verbalized by the patient): Female Spiritual care concerns: No <Austin Garnett MD - Last Filed: 04/15/22 06:38> Exam Narrative: GENERAL: Well-appearing, well-nourished, and in no acute distress. HEAD: Normocephal
[2022-04-15 06:33] LABS: Basophils Percent Auto 0.2 % (0.2-1.2); Eosinophils Percent Auto 0.5 % (0-4.4); Hematocrit 42.1 % (37.0-47.0); Hemoglobin 14.2 g/dL (12.0-15.0); Immature Granulocyte Absolute 0.01 K/mm3 (0.00-0.031); Immature Granulocyte Percent A 0.1 % (0-0.5); Lymphocytes Absolute Auto 1.66 K/mm3 (0.9-3.2); Lymphocytes Percent Auto 20.2 % (18.3-44.2); Mean Corpuscular HGB Conc 33.7 g/dl (32-36); Mean Corpuscular Volume 94.8 fl (80-100); Mean Platelet Volume 10.6 fl (7.4-10.4); Monocytes Absolute Auto 0.5 K/mm3 (0.1-0.6); Monocytes Percent Auto 6.2 % (2.6-8.5); Neutrophils Percent Auto 72.8 % (45.5-73.1); Platelet Count Result 218 k/mm3 (150-375); Red Blood Count 4.44 M/mm3 (4.2-5.4); White Blood Count 8.2 K/mm3 (4.5-10.0)
[2022-04-15] MEDS: SODIUM CHLORIDE 0.9% IV 1,000 ML 999 ML IV CONT (06:34)
[2022-04-15] MEDS: KETOROLAC 15 MG/ML VIAL (*BKC) IV PUSH (06:35)
[2022-04-15] MEDS: diphenhydrAMINE HCl INJ 50 MG/ML VIAL 25 MG IV PUSH (06:36)
[2022-04-15 06:37] VITALS: BP 106/57; PULSE 88; RESP 20; O2SAT 98
[2022-04-15] MEDS: METOCLOPRAMIDE HCL INJ 10 MG/2 ML VIAL IV PUSH (06:37)
[2022-04-15 06:46] LABS: Alanine Aminotransferase 20 U/L (6-35); Albumin Level 4.4 g/dL (3.5-5.1); Alkaline Phosphatase 57 U/L (38-126); Anion Gap 10 mmol/L (8-16); Aspartate Amino Transferase 24 U/L (14-36); Bilirubin,Total 0.3 mg/dL (0.2-1.3); Blood Urea Nitrogen 11 mg/dL (7-17); Carbon Dioxide 26 mmol/L (22-30); Chloride 101 mmol/L (98-107); Estimated CRCL calculation 56 ml/min; Estimated Glomerular Filt Rate > 60; Glucose 110 mg/dL (65-110); Magnesium 1.9 mg/dL (1.6-2.3); Potassium 3.8 mmol/L (3.4-5.0); Sodium 137 mmol/L (137-145)
[2022-04-15 06:57] LABS: Add Urine Microscopic? YES; Appearance Urine Cloudy (Clear); Bilirubin Urine Negative (Negative); Blood Urine 2+ (Negative); Color Urine Yellow (Yellow); Glucose Urine UA Negative (Negative); Ketones Urine Negative (Negative); Leukocyte Esterase Ur Negative LEU/UL (Negative); Mucus Urine Rare /lpf; Nitrate Urine Negative (Negative); Protein Urine Negative (Negative); RBC Urine 21-50 /hpf (0-2); Specific Grav Ur 1.019 (1.001-1.035); Squamous Epithelial Cell Urine Rare /hpf (Few); Urobilinogen Urine Negative mg/dL (<2.0); WBC Urine 0-3 /hpf
[2022-04-15 08:52] VITALS: BP 99/57; PULSE 75; RESP 18; O2SAT 99
== END 2022-04-15 09:47 | disposition home or self-care (01) ==
PROVIDERS: Emergency Medicine; Emergency Provider Emergency Medicine; PCP Family Medicine Sports Medicine
DX: M54.2 Cervicalgia (principal); E78.5 Hyperlipidemia, unspecified; F17.210 Nicotine dependence, cigarettes, uncomplicated
CPT/HCPCS: 36415; 70450; 80053; 81001; 83735; 85025; 96361; 96374; 96375; 99284; J1200; J1885; J2765; J7030

== ENCOUNTER → 2022-05-28 12:18 | Outpatient (CLI) | payer MEDICARE, SELFPAY ==
--- NOTE | ~2022-05-28 | XR_ITS ---
XR cervical spine 4-5V 05/28/2022 12:40 Indication: Cervicalgia. Procedure: 5 views cervical spine Comparison: 11/20/2019 Findings: There is reversal of cervical lordosis, likely due to muscle spasm and/or patient positioni ng. There is disc narrowing at C4-5, C5-6 and C6-7. No acute fracture or traumatic malalignment. No p revertebral soft tissue abnormality. There is moderate multilevel uncinate and facet hypertrophy. Odo ntoid process is normal. Lateral masses are aligned. Lung apices are normal. Impression: 1: Moderate cervical spondylosis. Reviewed, dictated and finalized at location A. CHECKER Impression: 1: Moderate cervical spondylosis.
== END ==
PROVIDERS: PCP Family Medicine; Visit Provider Physician Assistant Medical
DX: M47.892 Other spondylosis, cervical region (principal)
CPT/HCPCS: 72050

== ENCOUNTER → 2022-12-30 14:51 | Outpatient (CLI) | payer MEDICARE, SELFPAY ==
--- NOTE | ~2022-12-30 | MM_ITS ---
EXAMINATION: MM screening candace BI w brittney HISTORY: Screening mammogram TECHNIQUE: Craniocaudal and mediolateral oblique 3-D tomosynthesis images were obtained and synthetic 2-D images were generated. CAD analysis was submitted and interpreted. COMPARISON: 09/17/2021, , 01/22/2019 bilateral screening mammogram examinations BREAST PARENCHYMAL COMPOSITION: The breasts are heterogeneously dense, which may obscure small masses . FINDINGS: 2 biopsy sutures are again noted on the right; history of prior benign right breast biopsie s. There is no evidence of suspicious mass, calcification, or architectural distortion to suggest mal ignancy in either breast. There has been no suspicious interval change. IMPRESSION: 1. No mammographic evidence of malignancy. 2. Recommend routine screening mammography in one year. BI-RADS Category 1: Negative Reviewed, dictated and finalized at location A.
== END ==
PROVIDERS: PCP Family Medicine; Visit Provider Family Medicine
DX: Z12.31 Encounter for screening mammogram for malignant neoplasm of breast (principal)
CPT/HCPCS: 77063; 77067

== ENCOUNTER → 2023-01-04 12:12 | Outpatient (CLI) | payer MEDICARE, SELFPAY ==
--- NOTE | ~2023-01-04 | XR_ITS ---
Lumbosacral Spine: AP, oblique, and lateral views Clinical History: Pain Findings: The normal lordotic curve is maintained. No fracture or subluxation seen. There is severe d egenerative spurring at L4-L5 and L5-S1. There is mild to moderate facet arthropathy at the lower lum bar spine. The sacroiliac joints are normally outlined. Impression: Moderate degenerative spondylosis of the lower lumbar spine. No fracture or subluxation. Reviewed, dictated and finalized at location . Impression: Moderate degenerative spondylosis of the lower lumbar spine. No fracture or subluxation.
== END ==
PROVIDERS: PCP Family Medicine; Visit Provider Physician Assistant Medical
DX: M47.816 Spondylosis without myelopathy or radiculopathy, lumbar region (principal)
CPT/HCPCS: 72110

== ENCOUNTER 2023-01-07 12:39 | Outpatient (CLI) | payer MEDICARE, SELFPAY ==
--- NOTE | ~2023-01-07 | CT_ITS ---
EXAMINATION: CT lung screening DATE: 01/07/2023 13:06 INDICATION: Z87.891 - Personal history of nicotine dependence TECHNIQUE: Computed tomography (CT) of the chest was performed without intravenous contrast. Automate d exposure control and iterative reconstruction technique were employed. The dose-length product was 63.27 mGy-cm. COMPARISON: CT lung screening 01/01/2021. FINDINGS: CHEST: Thoracic aorta: No significant dilation or mild arch calcification. Lung parenchyma and airways: Stable biapical pleural scarring and calcification. Centrilobular emphys ematous change. Otherwise clear. Thoracic inlet, axillae and chest wall: No thyroid or soft tissue mass. No axillary lymphadenopathy. Mediastinum: No mass or lymphadenopathy. Heart and pericardium: Normal heart size. Mild mitral annulus calcification. Aortic valve calcificati on. No pericardial effusion. Coronary artery calcifications: Mild. Pleura: No effusion or mass. Upper abdomen: No significant finding. Thoracic bones: No acute osseous finding in the chest. IMPRESSION: Lung RADS category 2: Benign appearance or behavior. Continue annual screening with noncontrast low-d ose chest CT in 12 months. Reviewed, dictated and finalized at location K. IMPRESSION: Lung RADS category 2: Benign appearance or behavior. Continue annual screening with noncontrast low-dose chest CT in 12 months.
== END 2023-01-07 12:40 | disposition home or self-care (01) ==
PROVIDERS: PCP Family Medicine; Visit Provider Physician Assistant Medical
DX: Z12.2 Encounter for screening for malignant neoplasm of respiratory organs (principal); Z87.891 Personal history of nicotine dependence
CPT/HCPCS: 71271

== ENCOUNTER 2023-04-12 07:01 | Outpatient (CLI) | payer MEDICARE, SELFPAY ==
--- NOTE | ~2023-04-12 | MR_ITS ---
MRI of the cervical spine Clinical History: Cervicalgia Technique: Axial T2-weighted and gradient images, and sagittal T1-weighted, T2-weighted, and STIR shelby ges were acquired. Findings: There is mild reversal normal cervical lordosis. No fracture or subluxation evident. No kenyetta picious bone marrow signal abnormality seen. At C2-C3, there is mild left foraminal disc osteophyte complex. There is minimal left neural foramina l narrowing. Right neural foramen preserved. No central canal stenosis or cord compression. At C3-C4, there is minimal disc osteophyte complex. There is no central canal stenosis or cord compre ssion. No neural foraminal narrowing evident. At C4-C5, there is minimal disc bulge. No spinal canal stenosis, cord compression, or neural foramina l narrowing. At C5-C6, there is mild disc osteophyte complex. There is mild canal stenosis without linh cord comp ression. There is bilateral neural foraminal narrowing with probable bilateral facet arthropathy. At C6-C7, there is minimal disc osteophyte complex. There is mild canal stenosis without linh cord c ompression. There is bilateral neural foraminal narrowing, left worse than right. No abnormal signal seen in the spinal cord. Paravertebral soft tissues are unremarkable. Impression: Moderate degenerative spondylosis of the lower cervical spine, as detailed above. Mild degenerative change in the remainder of the cervical spine, as above. Reviewed, dictated and finalized at [facility]. Impression: Moderate degenerative spondylosis of the lower cervical spine, as detailed abov e. Mild degenerative change in the remainder of the cervical spine, as above.
== END 2023-04-12 07:02 ==
LOC: MICIMG 07:03
PROVIDERS: PCP Nurse Practitioner Family; Visit Provider Nurse Practitioner Family
DX: M43.02 Spondylolysis, cervical region (principal); M50.30 Other cervical disc degeneration, unspecified cervical region
CPT/HCPCS: 72141

== ENCOUNTER 2023-08-15 11:42 | Outpatient (CLI) | payer MEDICARE, SELFPAY ==
[2023-08-15 12:19] LABS: Alanine Aminotransferase 19 U/L (6-35); Albumin Level 4.3 g/dL (3.5-5.1); Alkaline Phosphatase 54 U/L (38-126); Anion Gap 5 mmol/L (8-16); Aspartate Amino Transferase 26 U/L (14-36); Bilirubin,Total 0.6 mg/dL (0.2-1.3); Blood Urea Nitrogen 10 mg/dL (7-17); Calcium 9.4 mg/dL (8.4-10.2); Carbon Dioxide 30 mmol/L (22-30); Chloride 102 mmol/L (98-107); Cholesterol 187 mg/dL (0-200); Estimated Glomerular Filt Rate > 60; Glucose 91 mg/dL (65-110); HDL Direct 62 mg/dL; Potassium 3.7 mmol/L (3.4-5.0); Sodium 137 mmol/L (137-145); Triglycerides 81 mg/dL (<150)
[2023-08-15 12:30] LABS: LDL Cholesterol Direct 99 mg/dL
[2023-08-15 12:44] LABS: Vitamin D 25 Hydroxy 53.4 ng/mL
== END 2023-08-15 11:43 | disposition home or self-care (01) ==
PROVIDERS: PCP Family Medicine; Visit Provider Physician Assistant Medical
DX: E55.9 Vitamin D deficiency, unspecified (principal); E78.2 Mixed hyperlipidemia
CPT/HCPCS: 36415; 80053; 80061; 82306

== ENCOUNTER 2023-09-15 13:34 | Outpatient (CLI) | payer MEDICARE, SELFPAY ==
--- NOTE | 2023-09-18 14:14 | P.PCNPFT_ITS ---
PFT Procedure Performed PFT Procedure Performed Spirometry with Pre/Post Bronchodilator Plethysmography (Lung Vol) Diffusing Cap (DLCO) Flow Vol Loop PFT Interpretation DOS: 09/15/2023 REQUESTING: Khushi Corral MD REASON FOR TESTING: COPD PULMONARY FUNCTION TESTS Results are reliable and reproducible. Repeatability of spirometry FEV1 maneuver pre and post bronchodilator is Grade A. Spirometry: The pre-bronchodilator FEV1 is 1.38 L, 63%, decreased. The pre- bronchodilator FVC is 2.10 L, 75%, at the lower limit of normal. The FEV1/FVC ratio is 66%, normal. After bronchodilator, the FEV1 is 1.44 L, 66%, 4% increase. The FVC is 2.18 L, 78%, 4% increase. The post bronchodilator FEV1/FVC ratio is 66%. Lung volumes: The total lung capacity is 4.99 L, 102%, normal. The residual volume is 2.84 L, 135%, normal. The RV/TLC is 57% increased consistent with air trapping. Airway resistance is 291%, increased. Diffusion: DLCO is 12.2, 60%, decreased. The DLCO/VA is 3.55, 81%, normal. Flow volume loop: The flow volume loop shows mild coving of the expiratory limb consistent with airflow obstruction. IMPRESSION: This study shows a mild obstructive ventilatory impairments without response to bronchodilator, mild air trapping, mild diffusion impairment that normalizes for alveolar volume. Lack of response to bronchodilator should not preclude use of clinically indicated. No prior studies for comparison. Simona Peck MD
== END 2023-09-15 13:35 | disposition home or self-care (01) ==
PROVIDERS: PCP Family Medicine; Visit Provider Family Medicine
DX: J44.9 Chronic obstructive pulmonary disease, unspecified (principal)
CPT/HCPCS: 94060; 94726; 94729

== ENCOUNTER 2024-05-29 10:33 | Outpatient (CLI) | payer MEDICARE, SELFPAY ==
[2024-05-29 11:21] LABS: Alanine Aminotransferase 14 U/L (6-35); Albumin Level 4.7 g/dL (3.5-5.1); Alkaline Phosphatase 54 U/L (38-126); Anion Gap 5 mmol/L (4-12); Aspartate Amino Transferase 23 U/L (14-36); Bilirubin,Total 0.6 mg/dL (0.2-1.3); Blood Urea Nitrogen 7 mg/dL (7-17); Calcium 9.8 mg/dL (8.4-10.2); Carbon Dioxide 32 mmol/L (22-30); Chloride 104 mmol/L (98-107); Cholesterol 214 mg/dL (0-200); Estimated Glomerular Filt Rate > 60; Glucose 99 mg/dL (65-110); HDL Direct 67 mg/dL; Potassium 4.1 mmol/L (3.4-5.0); Sodium 141 mmol/L (137-145); Triglycerides 106 mg/dL (<150)
[2024-05-29 11:31] LABS: LDL Cholesterol Direct 103 mg/dL
== END 2024-05-29 10:34 | disposition home or self-care (01) ==
PROVIDERS: PCP Family Medicine; Visit Provider Family Medicine
DX: E78.2 Mixed hyperlipidemia (principal); E78.5 Hyperlipidemia, unspecified
CPT/HCPCS: 36415; 80053; 80061

== ENCOUNTER 2024-06-06 12:00 | Outpatient (CLI) | payer MEDICARE, SELFPAY ==
--- NOTE | ~2024-06-06 | CT_ITS ---
CT Scan of the Chest without Contrast: Clinical Indication: Lung cancer screening, nicotine dependence Technique: Contiguous sections were acquired throughout the chest without intravenous contrast. Dose reduction technique was used on this scan by utilizing automated exposure control and iterative recon struction technique. The dose-length product (DLP) was 57.16 mGy-cm. COMPARISON: 01/07/2023 Findings: There is no evidence of any significant mediastinal, hilar or axillary lymphadenopathy. Coronary sherrie ry calcifications are present. There is no evidence of pleural or pericardial effusion. Stable coarse biapical scarring with calcifications. Mild to moderate upper lobe emphysema present. Images through the upper abdomen reveal no abnormalities. Impression: Lung RADS 2: Benign appearance. 12 month follow-up screening CT advised. Reviewed, dictated and finalized at location . K CLERK Impression: Lung RADS 2: Benign appearance. 12 month follow-up screening CT advised.
--- NOTE | ~2024-06-06 | MM_ITS ---
EXAMINATION: MM screening candace BI w brittney HISTORY: Screening TECHNIQUE: Craniocaudal and mediolateral oblique 3-D tomosynthesis images were obtained and synthetic 2-D images were generated. CAD analysis was submitted and interpreted. COMPARISON: Comparison to multiple prior studies sequentially, with oldest reviewed study dated 01/30. BREAST PARENCHYMAL COMPOSITION: Dense: The breasts are heterogeneously dense, which may obscure small masses FINDINGS: There is no evidence of suspicious mass, calcification, or architectural distortion to sugg est malignancy in either breast. There has been no suspicious interval change. IMPRESSION: 1. No mammographic evidence of malignancy. 2. Recommend routine screening mammography in one year. BI-RADS Category 1: Negative Reviewed, dictated and finalized at location B. MOTIVE TITLE CLERK
--- NOTE | ~2024-06-06 | DEXA_ITS ---
Bone Density Report Name: WIN WILLIAMSON Age: 69 Sex: Female Ethnicity: White Date of : 1955 Indication: postmenopausal; screening for osteoporosis; parental hip fracture; history of glucocorticoids; hysterectomy; Referring Provider: Khushi Corral Study: Bone densitometry was performed. Exam Date: June 06, 2024 Accession number: [id number] Bone Density: Region BMD T-score Z-score Classification AP Spine(L1-L4) 0.714 -3.0 -1.0 Osteoporosis Femoral Neck (Left) 0.574 -2.5 -0.7 Osteoporosis Total Hip (Left) 0.756 -1.5 -0.1 Osteopenia Femoral Neck (Right) 0.601 -2.2 -0.5 Osteopenia Total Hip (Right) 0.781 -1.3 0.1 Osteopenia Femoral Neck Mean 0.587 -2.4 -0.6 Osteopenia Total Hip Mean 0.768 -1.4 0.0 Osteopenia World Health Organization criteria for BMD impression classify patients as: Normal (T-score at or above -1.0), Osteopenia (T-score between -1.0 and -2.5), or Osteoporosis (T-score at or below -2.5). 10-year Fracture Risk: FRAX not reported because: Some T-score for Spine Total or Hip Total or Femoral Neck at or below -2.5 Clinical Information Provided by Patient: Parent has had a hip fracture Smokes Has taken Glucocorticoids Has used the following medications: Vitamin D, Calcium Has the following medical conditions: Hysterectomy Patient maximum height was 63 Menopause Age: 50 No regular weight bearing exercise Does not regularly consume dairy products Drinks caffeinated beverages Onset of menses at age 14 Number of children 3 Impression: The patient has osteoporosis, based on the Total Spine T-score. The patient has risk factors, including: parental hip fracture, smoking, history of glucocorticoid therapy. Discussion: INCREASED RISK OF FRACTURE. BONE DENSITY IS UNDESIRABLY LOW AT ONE OR MORE SKELETAL SITES, CONSISTENT WITH POSTMENOPAUSAL OSTEOPOROSIS. This patient's lowest T-score meets the World Health Organization's (WHO) criteria for osteoporosis at one or more sites (T-score -2.5 or below). In untreated patients, the risk of osteoporotic fracture increases approximately two-fold for each 1.0 SD decrease in T-score. Low bone density is not the only risk factor for fracture; also consider factors such as patient's age, frailty or poor health, risk of falling, risk of injury, previous osteoporotic fracture, family history of osteoporosis, cigarette smoking, low body weight, etc. Not everyone with low bone mineral density has osteoporosis; osteomalacia and other metabolic bone disorders should also be considered. Patients who have osteoporosis should be evaluated for specific diseases and conditions (secondary causes) that may cause or contribute to bone loss. The [place] [employer] Endocrinologists (AACE) and National Osteoporosis Foundation (NOF) recommend pharmacologic intervention for all postmenopausal women whose T-score is in this range. The patient should follow a healthful lifestyle (good nutrition with adequate calcium and vitamin D, and appropriate weight-bearing exercise). Follow-Up: Consider a repeat BMD and Vertebral Fracture Assessment (VFA) exam in 2 years or sooner if medically necessary, to reassess this patient's status. Reported by: MACIE on 06/06/2024 12:40:00 PM. Reviewed, dictated and finalized at location A.
== END 2024-06-06 12:01 | disposition home or self-care (01) ==
LOC: CHSIMG 12:01
PROVIDERS: PCP Family Medicine; Visit Provider Family Medicine
DX: Z12.31 Encounter for screening mammogram for malignant neoplasm of breast (principal); M81.0 Age-related osteoporosis without current pathological fracture; M85.89 Other specified disorders of bone density and structure, multiple sites; Z78.0 Asymptomatic menopausal state; Z87.891 Personal history of nicotine dependence; Z12.2 Encounter for screening for malignant neoplasm of respiratory organs
CPT/HCPCS: 71271; 77063; 77067; 77080

== ENCOUNTER 2024-07-06 00:24 | Day surgery (SDC) | payer MEDICARE, SELFPAY ==
[2024-06-22 14:48] VITALS: BMI 23.3
[2024-07-06 11:45] VITALS: BP 92/78; PULSE 108; RESP 18; O2SAT 94
--- NOTE | 2024-07-06 12:03 | WPDANESEPPF ---
Anes - Initial Pre Proc Eval Procedure: Operation Date: 07/06/24 14:00 Proposed Procedures p Colonoscopy - Adrian Cain MD Date/Time: 07/06/24 12:03 Surgeon: Adrian Cain MD Pre Op Diagnosis: hx of colon polyps Patient Data Age: 69 Gender: F Height: 1.57 m Weight: 56.2 kg Allergies Allergy/AdvReac Type Severity Reaction Status Date / Time cimetidine (From Tagamet) Allergy Swelling Verified 06/22/24 15:12 of Lip/Tongue/Throat Penicillins AdvReac Blister Verified 06/22/24 15:12 Home Medications ?Medication ?Instructions ?Recorded ?Confirmed ?Type cholecalciferol (vitamin D3) 25 1,000 unit PO DAILY #90 caps 04/23/19 07/06/24 Rx mcg (1,000 unit) capsule aspirin 81 mg chewable tablet 81 mg PO DAILY@0800 #30 tabs 11/26/21 07/06/24 Rx (Children's Aspirin) fluticasone propionate 50 1 spray intranasal Q12H #16 grams 06/24/22 07/06/24 Rx mcg/actuation nasal spray,suspension (Flonase Allergy Relief) varenicline tartrate 0.5 mg (11)-1 See Rx Instructions PO PER PKG DIR 01/11/23 02/13/24 Rx mg (42) tablets in a dose pack #53 ea (Chantix Starting Month Box) albuterol sulfate 90 mcg/actuation 1 inh inhalation Q4H PRN shortness 08/11/23 07/06/24 Rx aerosol inhaler of breath or wheezing #8.5 grams escitalopram oxalate 10 mg tablet 30 mg (3 x 10 mg) PO DAILY 90 days 09/12/23 07/06/24 Rx (Lexapro) #270 tabs escitalopram oxalate 20 mg tablet 20 mg PO DAILY #90 tabs 09/15/23 07/06/24 Rx pravastatin 10 mg tablet See Rx Instructions .Route 04/02/24 07/06/24 Rx .COMPLEX #100 tabs alendronate 70 mg tablet 70 mg PO WEEKLY #14 tabs 06/11/24 07/06/24 Rx alprazolam 0.25 mg tablet 0.25 mg PO BID PRN anxiety #180 06/26/24 07/06/24 Rx tabs Patient hx anesthesia problems: none Family hx anesthesia problems: none Results Review: All pre-operative results and documents have been reviewed as part of the pre-operative evaluation. [facility] Past Medical History Medical History Obstructive airway disease Impacted cerumen of both ears Grieving COPD (chronic obstructive pulmonary disease) Postmenopausal atrophic vaginitis Osteopenia Migraines Anxiety and depression Hyperlipemia Surgical History Surgical History History of adenoidectomy (~1966) History of tonsillectomy (~1966) History of hysterectomy (~1984) Due to endometriosis with associated unilateral oophorectomy History of appendectomy (~1964) Family History Family History Father Acute myocardial infarction Alcoholism Cerebrovascular accident Mother Hypertension Sibling Alcoholism Sibling Alcoholism PCOS (polycystic ovarian syndrome) Son Anxiety Daughter Anxiety Social History Social History Social History: She lives at home with her small dog. She is . She raised 2 sons and 1 daughter. She is independent activities of daily living. She continues to smoke a pack of cigarettes per day and has done so since she was teenager. She denies any significant alcohol use. 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 Code status: Full code Smoking packs per day: 1 Smoking cigarettes per day: 20.0 Years smoked: 50 Smoking pack-years: 50.00 Smoking status: Current every day smoker (1 ppd) Alcohol intake: never Substance use: never Lack of Transportation: No Lack of Food: Never True Current Housing: I Have Housing Concerned About Future Housing: No Difficulty Paying Gas/Electric Bills: No Difficulty Paying for Meds: No Currently Unemployed: No Education: High School Diploma/GED Difficulty w/ Childcare or Family Care: No Gender identity (if verbalized by the patient): Female Spiritual care concerns: No Anes - Eval Final PreProcedure Day of Procedure 07/06/24 12:03 Patient weight: normal Heart: regular rate and rhythm Lungs: clear to auscultation Airway: Mallampati scale class II Neurological: alert and oriented Last oral intake: >/= 8 hours ASA classification: III Emergent: no Anesthetic plan: proceed Anesthesia type and monitoring: general GIVS and standard monitoring Results Review: All pre-operative results and documents have been reviewed as part of the pre-operative evaluation. Informed Consent: The patient's anesthetic plan and its attendant risks and benefits were discussed with the patient/family/POA. Questions were solicited and answers provided to the satisfaction of the patient/family/POA.
[2024-07-06] MEDS: LACTATED RINGERS 1,000 ML 150 ML IV CONT (12:04)
--- NOTE | 2024-07-06 12:37 | P.HP_ITS ---
History of Present Illness History of Present Illness Consent: Risks, benefits, and alternatives have been discussed and questions answered. Patient agrees to proceed with procedure. Chief complaint: hx of colon polyps Narrative: Emma Strauss is a 69 year old female with colon polyp 5 years ago Review of Systems Review of Systems: All systems reviewed & are unremarkable except as noted in HPI and below PMFSH Past Medical History Medical History Obstructive airway disease Impacted cerumen of both ears Grieving COPD (chronic obstructive pulmonary disease) Postmenopausal atrophic vaginitis Osteopenia Migraines Anxiety and depression Hyperlipemia Surgical History Surgical History History of adenoidectomy (~1966) History of tonsillectomy (~1966) History of hysterectomy (~1984) Due to endometriosis with associated unilateral oophorectomy History of appendectomy (~1964) Family History Family History Father Acute myocardial infarction Alcoholism Cerebrovascular accident Mother Hypertension Sibling Alcoholism Sibling Alcoholism PCOS (polycystic ovarian syndrome) Son Anxiety Daughter Anxiety Social History Social History Social History: She lives at home with her small dog. She is . She raised 2 sons and 1 daughter. She is independent activities of daily living. She continues to smoke a pack of cigarettes per day and has done so since she was teenager. She denies any significant alcohol use. 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 Code status: Full code Smoking packs per day: 1 Smoking cigarettes per day: 20.0 Years smoked: 50 Smoking pack-years: 50.00 Smoking status: Current every day smoker (1 ppd) Alcohol intake: never Substance use: never Lack of Transportation: No Lack of Food: Never True Current Housing: I Have Housing Concerned About Future Housing: No Difficulty Paying Gas/Electric Bills: No Difficulty Paying for Meds: No Currently Unemployed: No Education: High School Diploma/GED Difficulty w/ Childcare or Family Care: No Gender identity (if verbalized by the patient): Female Spiritual care concerns: No Meds Home Medications and Allergies Home Medications ?Medication ?Instructions ?Recorded ?Confirmed ?Type cholecalciferol (vitamin D3) 25 1,000 unit PO DAILY #90 caps 04/23/19 07/06/24 Rx mcg (1,000 unit) capsule aspirin 81 mg chewable tablet 81 mg PO DAILY@0800 #30 tabs 11/26/21 07/06/24 Rx (Children's Aspirin) fluticasone propionate 50 1 spray intranasal Q12H #16 grams 06/24/22 07/06/24 Rx mcg/actuation nasal spray,suspension (Flonase Allergy Relief) varenicline tartrate 0.5 mg (11)-1 See Rx Instructions PO PER PKG DIR 01/11/23 02/13/24 Rx mg (42) tablets in a dose pack #53 ea (Chantix Starting Month Box) albuterol sulfate 90 mcg/actuation 1 inh inhalation Q4H PRN shortness 08/11/23 07/06/24 Rx aerosol inhaler of breath or wheezing #8.5 grams escitalopram oxalate 10 mg tablet 30 mg (3 x 10 mg) PO DAILY 90 days 09/12/23 07/06/24 Rx (Lexapro) #270 tabs escitalopram oxalate 20 mg tablet 20 mg PO DAILY #90 tabs 09/15/23 07/06/24 Rx pravastatin 10 mg tablet See Rx Instructions .Route 04/02/24 07/06/24 Rx .COMPLEX #100 tabs alendronate 70 mg tablet 70 mg PO WEEKLY #14 tabs 06/11/24 07/06/24 Rx alprazolam 0.25 mg tablet 0.25 mg PO BID PRN anxiety #180 06/26/24 07/06/24 Rx tabs Allergies Allergy/AdvReac Type Severity Reaction Status Date / Time cimetidine (From [facility]) Allergy Swelling Verified 06/22/24 15:12 of Lip/Tongue/Throat Penicillins AdvReac Blister Verified 06/22/24 15:12 Exam Const: General: comfortable and no acute distress HENMT: Face/Nose/Sinus: Normal nares present Eyes: General: appearance normal, both eyes and all related structures Neck: Neck: no JVD Resp: Auscultation: clear to auscultation bilaterally Cardio: Rate: regular rate Rhythm: regular rhythm GI: Inspection: non-distended GI Palp: Yes Soft to palpation Skin: General skin exam: normal color Neuro: General: gait normal Speech: normal speech Extrem: General: normal to inspection Psych: Mental Status: mental status grossly normal Assessment and Plan Assessment and plan (1) Personal history of colonic polyps: Code(s): Z86.010 - Personal history of colon polyps Status: Acute Assessment and Plan: colonoscopy
[2024-07-06 12:56] VITALS: BP 99/45; PULSE 79; RESP 23; O2SAT 96
--- NOTE | 2024-07-06 12:56 | SUR.OPER ---
Dr. Keys notified that we were not able to retrieve the rectal polyp
[2024-07-06 13:06] VITALS: BP 101/50; PULSE 69; RESP 20; O2SAT 96
[2024-07-06 13:16] VITALS: BP 103/56; PULSE 67; RESP 19; O2SAT 97
--- OUTSIDE RECORDS SUMMARY | 2024-07-12 04:49 | XMS_ITS | Clinical Summary ---
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 Gender Identity Not on file Sexual Orientation Not on file Plan of Treatment Health Maintenance Due Date Last Done Comments DTAP/TDAP/TD VACCINES (1 - Tdap) 1974 BREAST CANCER SCREENING 1995 COLORECTAL SCREENING 02/08/2000 Colorectal Cancer Screening 02/08/2000 FIT-DNA Q 3 years 02/08/2000 FIT/FOBT Q 1 year 02/08/2000 Flex Sig/CT Colonography Q 5 years 02/08/2000 PNEUMOCOCCAL VACCINE 65+ YEARS (1 of 1 - PCV) 02/08/20 05 ZOSTER VACCINE (1 of 2) 2005 OSTEOPOROSIS SCREENING 02/08/2020 INFLUENZA VACCINE (#1) 2024 RSV VACCINE (60+ or ) (1 - 1-dose 75+ series) 2030 Care Teams Licensed And Certified Midwife Relationship Specialty [place] [id number] [place] [address] PCP - General 10/11/00
--- OUTSIDE RECORDS SUMMARY | 2024-07-12 04:49 | XMS_ITS | Encounter Summary ---
Author Organization [facility] Address 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
== END 2024-07-06 13:44 | disposition home or self-care (01) ==
PROVIDERS: PCP Family Medicine; Visit Provider Internal Medicine Gastroenterology
PROC: 0DJD8ZZ Inspection of Lower Intestinal Tract, Via Natural or Artificial Opening Endoscopic (ICD-10-PCS; CPT 45378; principal; 2024-07-06 14:00)
DX: Z12.11 Encounter for screening for malignant neoplasm of colon (principal); D12.0 Benign neoplasm of cecum; K64.8 Other hemorrhoids; E78.5 Hyperlipidemia, unspecified; J44.9 Chronic obstructive pulmonary disease, unspecified; F41.8 Other specified anxiety disorders; M85.88 Other specified disorders of bone density and structure, other site; Z79.82 Long term (current) use of aspirin; Z79.51 Long term (current) use of inhaled steroids; Z79.83 Long term (current) use of bisphosphonates; Z98.890 Other specified postprocedural states; Z87.891 Personal history of nicotine dependence; Z82.49 Family history of ischemic heart disease and other diseases of the circulatory system
CPT/HCPCS: 45385; 88305; J2704; J7120

== ENCOUNTER 2024-09-28 12:09 | Outpatient (CLI) | payer MEDICARE, SELFPAY ==
--- NOTE | ~2024-09-28 | XR_ITS ---
Lumbosacral Spine: AP and lateral views Clinical History: Pain Findings: The normal lordotic curve is maintained. No fracture or subluxation seen. There is severe d egenerative disc narrowing at L4-L5 and L5-S1. There is moderate facet arthropathies of the lumbar sp ine. The sacroiliac joints are normally outlined. Impression: Moderate to advanced degenerative spondylosis, worst at the lower lumbar spine. Please see details ab ove. Reviewed, dictated and finalized at location M. Impression: Moderate to advanced degenerative spondylosis, worst at the lower lumbar spine. Please see details above.
--- OUTSIDE RECORDS SUMMARY | 2024-09-28 12:12 | XMS_ITS | Encounter Summary ---
Author Organization [employer] Address 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
--- OUTSIDE RECORDS SUMMARY | 2024-09-28 12:12 | XMS_ITS | Clinical Summary ---
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 Gender Identity Not on file Sexual Orientation Not on file Plan of Treatment Health Maintenance Due Date Last Done Comments DTAP/TDAP/TD VACCINES (1 - Tdap) 1974 BREAST CANCER SCREENING 1995 COLORECTAL SCREENING 02/08/2000 Colorectal Cancer Screening 02/08/2000 FIT-DNA Q 3 years 02/08/2000 FIT/FOBT Q 1 year 02/08/2000 Flex Sig/CT Colonography Q 5 years 02/08/2000 PNEUMOCOCCAL VACCINE 50+ YEARS (1 of 1 - PCV) 02/08/20 05 ZOSTER VACCINE (1 of 2) 2005 OSTEOPOROSIS SCREENING 02/08/2020 INFLUENZA VACCINE (#1) 2024 RSV VACCINE (60+ or ) (1 - 1-dose 75+ series) 2030 Care Teams Stunner Animal Relationship Specialty Start [place] [id number] [place] [address] PCP - General 10/11/00
== END 2024-09-28 12:10 | disposition home or self-care (01) ==
LOC: ANHIMG 12:10
PROVIDERS: PCP Family Medicine; Visit Provider Student in an Organized Health Care Education/Training Program
DX: M47.816 Spondylosis without myelopathy or radiculopathy, lumbar region (principal); M47.817 Spondylosis without myelopathy or radiculopathy, lumbosacral region
CPT/HCPCS: 72100

== ENCOUNTER 2024-12-13 14:03 | Outpatient (CLI) | payer MEDICARE, SELFPAY ==
--- NOTE | ~2024-12-13 | MR_ITS ---
MRI of the lumbar spine Clinical History: Radiculopathy Technique: Axial T2-weighted images, and sagittal T1-weighted, T2-weighted, and T2 fat-sat images wer e acquired. Findings: There is no fracture or subluxation of the lumbar spine. Vertebral bodies maintain normal h eight and line. There are reactive Modic signal changes about the L4-L5 and L5-S1 disc spaces. No kenyetta picious bone marrow signal abnormality seen. At L1-L2, there is minimal disc bulge with mild facet arthropathy. No central canal stenosis or defin ite neural foraminal narrowing. At L2-L3, there is no disc bulge or herniation. There is mild facet arthropathy. No central canal jeff nosis or definite neural foraminal narrowing. At L3-L4, there is diffuse disc bulge with associated central disc extrusion extending inferiorly, an d continuing to severe thecal sac compression at this level. There is mild facet hypertrophy. There i s moderate to advanced bilateral neural foraminal narrowing. At L4-L5, there is severe degenerative tearing. There is diffuse disc bulge with moderate facet arthr opathy. There is mild central canal stenosis. There is severe bilateral neural foraminal comprise. At L5-S1, there is severe degenerative disc narrowing. There is diffuse disc bulge with moderate face t arthropathy. No central canal stenosis. There is severe bilateral neural foraminal compromise. Paravertebral soft tissues are otherwise unremarkable. Impression: Large central disc extrusion at L3-L4 extending inferiorly, and resulting in severe thecal sac compre ssion at this level, with associated moderate to advanced bilateral neural foraminal narrowing. Advanced degenerative spondylosis at L4-L5 and L5-S1 as well, as detailed above. Reviewed, dictated and finalized at [facility]. Impression: Large central disc extrusion at L3-L4 extending inferiorly, and resulting in se sharan thecal sac compression at this level, with associated moderate to advanced bilateral neural foraminal narrowing. Advanced degenerative spondylosis at L4-L5 and L5-S1 as well, as detailed above .
== END 2024-12-13 14:04 | disposition home or self-care (01) ==
LOC: GOSHIMG 14:03
PROVIDERS: PCP Student in an Organized Health Care Education/Training Program; Visit Provider Student in an Organized Health Care Education/Training Program
DX: R29.898 Other symptoms and signs involving the musculoskeletal system (principal); M51.369 Other intervertebral disc degeneration, lumbar region without mention of lumbar back pain or lower extremity pain; M51.379 Other intervertebral disc degeneration, lumbosacral region without mention of lumbar back pain or lower extremity pain; M47.26 Other spondylosis with radiculopathy, lumbar region
CPT/HCPCS: 72148

== ENCOUNTER 2024-12-28 14:21 | Outpatient (CLI) | payer MEDICARE, SELFPAY ==
--- OUTSIDE RECORDS SUMMARY | 2024-12-28 14:25 | XMS_ITS | Clinical Summary ---
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
--- OUTSIDE RECORDS SUMMARY | 2024-12-28 14:25 | XMS_ITS | Encounter Summary ---
Author Organization [facility] Address 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
--- NOTE | 2024-12-28 14:38 | ECHO_ITS ---
Patient Info Name: Emma Tracy Age: 69 years : 1955 Gender: Female Ht: 63 in Wt: 128 lbs BSA: 1.61 m2 HR: 90 bpm BP: 107 / 61 mmHg Heart Rhythm: Sinus Rhythm Technical Quality: Good Exam Date: 12/28/2024 2:47 PM Patient Status: O Admit Date: 12/28/2024 Exam Type: CA echo doppler color flow Complete two-dimensional, color flow and Doppler transthoracic echocardiogram is performed. Dance Choreographer: Emiliana Zaldivar Attending Provider: Allie Ortez Summary 1. Complete two-dimensional, color flow and Doppler transthoracic echocardiogram is performed. 2. Left ventricular chamber dimension is normal. 3. Left ventricular systolic function is normal, estimated at 60-65. 4. The left ventricular diastolic function is grade I diastolic dysfunction. 5. E/e' 8 is minimally elevated. 6. There is moderate aortic valve sclerosis. 7. There is mild aortic valve stenosis with a peak velocity of 235 cm/s, mean gradient of 12 mmHg, and aortic valve area of 1.6 cm2. 8. There is mild aortic valve regurgitation. 9. There is mild tricuspid valve regurgitation. 10. No pulmonary hypertension, estimated pulmonary arterial systolic pressure is 29 mmHg. Left Ventricle E/e' 8 is minimally elevated. Left ventricular chamber dimension is normal. Left ventricular systolic function is normal, estimated at 60-65. The left ventricular diastolic function is grade I diastolic dysfunction. Right Ventricle Right ventricular chamber dimension is normal. Right ventricular systolic function is normal and with normal TAPSE 2.1 cm. Left Atria Left atrial chamber dimension is normal. Right Atria Right atrial chamber dimension is normal. Aortic Valve The aortic valve is trileaflet. There is moderate aortic valve sclerosis. There is mild aortic valve stenosis with a peak velocity of 235 cm/s, mean gradient of 12 mmHg, and aortic valve area of 1.6 cm2. There is mild aortic valve regurgitation. Pulmonic Valve There is no pulmonic regurgitation. Mitral Valve There is no mitral valve stenosis. There is no mitral valve regurgitation. Tricuspid Valve There is mild tricuspid valve regurgitation. No pulmonary hypertension, estimated pulmonary arterial systolic pressure is 29 mmHg. Pericardium/Pleural There is no pericardial effusion. Inferior Vena Cava Normal inferior vena cava with >50% collapse upon inspiration consistent with normal right atrial pressure, 5 mmHg. Aorta The aortic root size at the sinus of Valsalva is normal. Left Ventricular Outflow Tract Name Value Normal LVOT 2D LVOT Diameter 2.0 cm LVOT Doppler LVOT Peak Velocity 109 cm/s LVOT Peak Gradient 5 mmHg LVOT Mean Gradient 3 mmHg LVOT VTI 22 cm LVOT VTI/AV VTI Ratio 0.5 LVOT Stroke Volume 69 ml LVOT CO 5.0 l/min LVOT CI 3.1 l/min/m2 Pulmonic Valve Name Value Normal RVOT Doppler RVOT Peak Velocity 98 cm/s RVOT Peak Gradient 4 mmHg PV Doppler PV Peak Velocity 98 cm/s PV Peak Gradient 4 mmHg Mitral Valve Name Value Normal MV Diastolic Function MV E Peak Velocity 74 cm/s MV A Peak Velocity 106 cm/s MV E/A 0.7 MV Decel Time (PW) 229 ms MV Annular TDI MV E/e' (Septal) 9.7 MV E/e' (Lateral) 7.5 MV E/e' (Average) 8.6 Tricuspid Valve Name Value Normal TV Regurgitation Doppler TR Peak Velocity 245 cm/s TR Peak Gradient 24 mmHg Estimated PAP/RSVP RA Pressure 5 mmHg <=5 PA Systolic Pressure 29 mmHg <36 RV Systolic Pressure 29 mmHg <36 TV Annular TDI TV Lateral Radha s' Velocity 10.4 cm/s >=9.5 Aortic Valve Name Value Normal AV Doppler AV Peak Velocity 235 cm/s AV Peak Gradient 22 mmHg AV Mean Gradient 12 mmHg AV VTI 44 cm AV Area (Cont Eq VTI) 1.6 cm2 >=3.0 AV Area (Cont Eq Zane) 1.4 cm2 AV DI (Zane) 0.46 AV Regurgitation 2D LVOT Area 3.1 cm2 Ventricles Name Value Normal LV Dimensions 2D/MM IVS Diastolic Thickness (2D) 1.0 cm 0.6-1.0 LVID Diastole (2D) 4.0 cm 3.8-5.2 LVIW Diastolic Thickness (2D) 0.9 cm 0.6-0.9 LVID Systole (2D) 2.7 cm 2.2-3.5 LVOT Diameter 2.0 cm LV Mass (2D Cubed) 115.69 g 67.00-162.00 LV Mass Index (2D Cubed) 72 g/m2 43-95 Relative Wall Thickness (2D) 0.47 <=0.42 LV Fractional Shortening/Ejection Fraction 2D/MM LV Fractional Shortening (2D) 32 % 27-45 LV EF (2D Teichholz) 60 % LV Diastolic Volume (4C MOD) 58 ml LV EF (4C MOD) 61 % LV Diastolic Volume (2C MOD) 40 ml LV EF (2C MOD) 62 % LV Diastolic Volume (BP MOD) 49 ml 46-106 LV Diastolic Volume Index (BP MOD) 30 ml/m2 29-61 LV Systolic Volume (BP MOD) 19 ml 14-42 LV Systolic Volume Index (BP MOD) 12 ml/m2 8-24 LV EF (BP MOD) 61 % 54-74 LV Diastolic Length (4C) 7.2 cm LV Systolic Length (4C) 5.6 cm LV Stroke Volume (4C MOD) 36 ml Atria Name Value Normal LA Dimensions LA Volume (4C A-L) 26 ml LA Volume (BP A-L) 30 ml RA Dimensions RA Area (4C) 11.7 cm2 <=18.0 Report Signatures
== END 2024-12-28 14:22 | disposition home or self-care (01) ==
PROVIDERS: PCP Family Medicine; Visit Provider Student in an Organized Health Care Education/Training Program
DX: R01.1 Cardiac murmur, unspecified (principal); I34.0 Nonrheumatic mitral (valve) insufficiency; I35.1 Nonrheumatic aortic (valve) insufficiency; I36.1 Nonrheumatic tricuspid (valve) insufficiency
CPT/HCPCS: 93306

== ENCOUNTER 2025-02-11 07:35 | Outpatient (CLI) | payer MEDICARE, SELFPAY ==
--- NOTE | ~2025-02-11 | NM_ITS ---
EXAMINATION: NM eli stress w perfusion DATE: 02/11/2025 10:19 CDT INDICATION: Preprocedural examination TECHNIQUE: Rest images were obtained following intravenous administration of 10.6 mCi Tc99m tetrofosmin (Myoview). The patient was infused intravenously with Lexiscan (regadenoson). Then, 31 mCi Tc99m tetrofosmin (Myoview) was administered intravenously, and stress images were obtained. Data was recons tructed into short axis and horizontal and vertical long axis SPECT images. Gated SPECT images were also obtained. COMPARISON: None. FINDINGS: There is no definite reversible or fixed perfusion abnormality to suggest ischemia or infarction. There is no segmental wall motion abnormality. Left ventricular ejection fraction measures 68%. IMPRESSION: 1. No definite ischemia or infarct. 2. Normal left ventricular ejection fraction measuring 68%. Reviewed, dictated and finalized at location O.
--- NOTE | 2025-02-11 07:52 | EST_ITS ---
Patient Info Name: Emma Tracy Age: 70 years : 1955 Gender: Female Ht: 63 in Wt: 128 lbs BSA: 1.61 m2 HR: 63 bpm BP: 142 / 72 mmHg Exam Date: 02/11/2025 7:52 AM Patient Status: O Admit Date: 02/11/2025 Exam Type: CA stress eli w NM A regadenoson stress test was performed. Staff Referring Physician: Keshav Aranda DO Attending Provider: Keshav Aranda DO Exercise Technologist: Radha Ruby Exercise Physician: Keshav Aranda DO Summary 1. 1. Negative lexiscan stress test for ischemic ST changes by ECG criteria. 2. 2. Baseline hypertension. 3. 3. Nuclear scan to follow and will be reported separately. Please correlate with it. 4. 4. Patient informed of the above results. Protocol: Lexiscan Stress ECG Details Stage: REST Duration (min): 1 min : 20 sec HR (bpm): 64 SBP (mmHg): 142 DBP (mmHg): 72 Stage: REST Duration (min): 9 min : 29 sec HR (bpm): 65 SBP (mmHg): 142 DBP (mmHg): 72 Stage: STAGE 1 Duration (min): 0 min : 59 sec HR (bpm): 87 SBP (mmHg): 146 DBP (mmHg): 68 Stage: RECOVERY Duration (min): 1 min : 0 sec HR (bpm): 107 SBP (mmHg): 146 DBP (mmHg): 68 Stage: RECOVERY Duration (min): 2 min : 0 sec HR (bpm): 110 SBP (mmHg): 146 DBP (mmHg): 68 Stage: RECOVERY Duration (min): 3 min : 0 sec HR (bpm): 113 SBP (mmHg): 222 DBP (mmHg): 124 Stage: RECOVERY Duration (min): 4 min : 0 sec HR (bpm): 113 SBP (mmHg): 222 DBP (mmHg): 124 Stage: RECOVERY Duration (min): 5 min : 0 sec HR (bpm): 93 SBP (mmHg): 158 DBP (mmHg): 57 Stage: RECOVERY Duration (min): 6 min : 0 sec HR (bpm): 83 SBP (mmHg): 158 DBP (mmHg): 57 Stage: RECOVERY Duration (min): 6 min : 48 sec HR (bpm): 75 SBP (mmHg): 169 DBP (mmHg): 62 Rest HR: 65 bpm Peak HR: 132 bpm Rest Sys BP: 142 mmHg Peak Sys BP: 154 mmHg Max Pred HR: 150 bpm % Max Pred HR: 88 % Target HR: 128 bpm Max RPP: 20,328 bpm*mmHg Termination Reason: Completed protocol Cardiac Symptoms: Shortness of breath, Nausea/vomiting Total Time: 1 min : 0 sec Rest Myrick BP: 72 mmHg Peak Myrick BP: 74 mmHg Total Dose: 0.4 mg Resting ECG Sinus rhythm, IRBBB. Stress ECG No ST changes. Aminophylline 100 mg IV x1 given for intolerable symptoms. Arrhythmias None. Report Signatures
== END 2025-02-11 07:36 | disposition home or self-care (01) ==
PROVIDERS: PCP Family Medicine; Visit Provider Internal Medicine Cardiovascular Disease
DX: Z01.810 Encounter for preprocedural cardiovascular examination (principal)
CPT/HCPCS: 78452; 93017; A9502; J0280

== ENCOUNTER 2025-04-18 12:48 | Outpatient (CLI) | payer MEDICARE, SELFPAY ==
--- NOTE | ~2025-04-18 | XR_ITS ---
EXAMINATION: XR chest 2V, 04/18/2025 14:05 CDT HISTORY: M51.16 - Intervertebral disc disorders with radiculopathy... COMPARISON: No comparisons available. Technique: 2 views obtained. Findings: The lungs are clear, no effusion. No pneumothorax. Heart is normal size. Mediastinal and hilar contours are within normal limits. Bony thorax no acute abnormality. Impression: No acute cardiopulmonary abnormality. Reviewed, dictated and finalized at location P. Impression: No acute cardiopulmonary abnormality.
--- OUTSIDE RECORDS SUMMARY | 2025-04-18 13:27 | XMS_ITS | Clinical Summary ---
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
--- OUTSIDE RECORDS SUMMARY | 2025-04-18 13:27 | XMS_ITS | Encounter Summary ---
Author Organization [facility] Address [address] [place] [address] Care Team Providers Care Boat Mechanic Name Role Phone Kwaku Jernigan MD Primary [...] on file Legal Sex Female 4:40 AM COMMUNITY OUTREACH WORKER Gender Identity Not on file Sexual Orientation Not on file documented as of this encounter Plan of Treatment Not on file documented as of this encounter Visit Diagnoses Diagnosis Cervicalgia- Primary documented in this encounter Care Teams Boat Mechanic Relationship Specialty [place] [address] [place] [address] PCP - General 10/11/00 documented as of this encounter
[2025-04-18 14:25] LABS: Hematocrit 42.6 % (37.0-47.0); Hemoglobin 14.2 g/dL (12.0-15.0); Mean Corpuscular HGB Conc 33.3 g/dl (32-36); Mean Corpuscular Hemoglobin 31.6 pg (26-34); Mean Corpuscular Volume 94.7 fl (80-100); Platelet Count Result 237 k/mm3 (150-375); Red Blood Count 4.50 M/mm3 (4.2-5.4); White Blood Count 7.2 K/mm3 (4.5-10.0)
[2025-04-18 14:38] LABS: Anion Gap 3 mmol/L (4-12); Blood Urea Nitrogen 9 mg/dL (7-17); Calcium 9.4 mg/dL (8.4-10.2); Carbon Dioxide 30 mmol/L (22-30); Chloride 98 mmol/L (98-107); Estimated Glomerular Filt Rate > 60; Glucose 92 mg/dL (65-110); INR 0.8; Partial Thromboplastin Time 32.4 Seconds (22.3-36.8); Potassium 4.1 mmol/L (3.4-5.0); Prothrombin Time 11.6 Seconds (11.1-14.7); Sodium 131 mmol/L (137-145)
[2025-04-18 14:42] LABS: Add Urine Microscopic? YES; Appearance Urine Cloudy (Clear); Glucose Urine UA Negative (Negative); Leukocyte Esterase Ur 1+ LEU/UL (Negative); Need Manual Microscopic Reviewed; Nitrate Urine Negative (Negative); Non Pathogenic Casts 0-2; Specific Grav Ur 1.008 (1.001-1.035)
== END 2025-04-18 12:49 | disposition home or self-care (01) ==
LOC: ANHSURGERY 12:52
PROVIDERS: PCP Student in an Organized Health Care Education/Training Program; Visit Provider Neurological Surgery
DX: Z01.818 Encounter for other preprocedural examination (principal); M51.16 Intervertebral disc disorders with radiculopathy, lumbar region; R82.90 Unspecified abnormal findings in urine
CPT/HCPCS: 36415; 71046; 80048; 81001; 85027; 85610; 85730; 87086

== ENCOUNTER 2025-05-02 01:48 | Day surgery (SDC) | payer MEDICARE, SELFPAY ==
[2025-04-18 13:16] VITALS: PULSE 95; RESP 16; TEMP 36.5; O2SAT 95; BMI 22.7
--- NOTE | 2025-04-18 13:32 | PC.NURSE ---
[facility] has started construction of its new state of the art ER which will open Spring 2026. With this, we anticipate parking may be a challenge for some our surgical patients and families. Parking spaces are limited but are available for all Surgical, obstetrics, and ER patients sharing this lot. If you arrive and find you are having a hard time finding a parking space, please note that we understand the challenges, please drive around the hospital and park near Hospital Entrance 1. When you enter this entrance, you can ask a volunteer to direct or take you back to the surgical waiting area to check in. We appreciate everyone?s understanding of these expected challenges while we build for your future. Report to the Outpatient Waiting Room, entrance under the green pavilion located off [address], at time ___09:00am____ on date __05/02/25 . Planned Procedure Time: __11:00am .? Time changes happen often and if your time is changed the preop area will call you the afternoon before. - You and your visitor will be asked to self-screen and do not enter if you have any COVID symptoms. Please call surgeon if you need to reschedule. - A mask is optional within the hospital at this time. Patients may have clear liquids (water, carbonated beverages, clear teas, apple juice) until 3 hours prior to surgery with a maximum of 20 ounces. - No food from midnight until time of surgery and no smoking, or chewing tobacco (or any form of nicotine). No chewing gum, candy or mints. (0800am) Take only the following medications with a SIP of water on the morning of surgery: Excitalopram, Alprazolam if needed, ES Tylenol if Needed DO NOT STOP ANY OF YOUR OTHER PRESCRIPTION MEDICATIONS PRIOR TO SURGERY EXCEPT THE FOLLOWING Hold all vitamins and supplements for 3 days per anesthesiologist. Medications to discontinue per physician HOLD ALL NSAIDS and ASPIRIN for [address] Patterson Date to take last dose___04/24/25 Please no make-up, nail zambian, hairspray, perfume, deodorant, or body powder the day of surgery.? No jewelry (including any body piercings) or valuables the day of surgery, leave them at home.? Please take a shower or bath the night before, or the morning of, surgery with an antibacterial soap.? Wear comfortable, loose fitting clothing.? - Jewelry must be removed prior to entering the operating room.? Rings and piercings that are not removed may be cut off. - The hospital will not accept responsibility for valuables.? - Please leave all valuables, including medications, at home the day of surgery. If you are going home after surgery, a licensed electric mule driver must drive you home.? - NO public transportation without another adult if you receive anesthesia. - We recommend that an adult stay with you for 24 hours following discharge. - We also recommend that you do not drive, make important decision, drink alcoholic beverages, or take any drugs that were not prescribed by your health care provider for at least 24 hours after your discharge time. Follow any additional instructions given to you from your surgeon. Telephone instructions given to ____Patient and asked if any additional questions and then verbalized understanding. Patient advised to call surgeon office or pre surgery nurse liaison [phone] if any additional questions.
[2025-05-02] VITALS (13 sets, daily range): BP systolic 94–136; BP diastolic 49–81; PULSE 69–103; RESP 15–20; TEMP 36.2–36.9; O2SAT 92–100
--- NOTE | ~2025-05-02 | XR_ITS ---
EXAMINATION: XR fluoroscopy no charge INDICATION: RIGHT L3-4 MICRODISCECTOMY . COMPARISON: None TECHNIQUE: 3 fluoroscopic images of the lumbar spine were obtained during microdiscectomy. Fluoroscopy exposure time was 4 seconds. Air Kerma 1.6098 mGy. DAP 0.3191 mGym2. FINDINGS/IMPRESSION: No radiologist was present or involved at the time of the procedure. Static images were submitted for interpretation. The images demonstrate placement of metallic marker and clamp. Fluoroscopic documentation of lumbar spine in the OR for control purposes. Please refer to the operative note for complete procedural details. Reviewed, dictated and finalized at location A. [employer]
--- OUTSIDE RECORDS SUMMARY | 2025-05-02 01:51 | XMS_ITS | Encounter Summary ---
Author Organization [facility] Address [address] [place] [address] Care Team Providers Care Order Picker Name Role Phone Kwaku Jernigan MD Primary [...] on file Legal Sex Female 4:40 AM RIB TRIM SEPARATOR Gender Identity Not on file Sexual Orientation Not on file documented as of this encounter Plan of Treatment Not on file documented as of this encounter Visit Diagnoses Diagnosis Cervicalgia- Primary documented in this encounter Care Teams Order Picker Relationship Specialty Start [place] [address] [place] [address] PCP - General 10/11/00 documented as of this encounter
--- OUTSIDE RECORDS SUMMARY | 2025-05-02 01:51 | XMS_ITS | Clinical Summary ---
Author Organization [facility] Address [address] [facility] Attn: Epic Prelude ADT RENÉESHORTY BALLESTEROSJOSE DANIEL JACKMAN [address] Care Team Providers Care Dialysis Chief Equipment Technician Name Role Phone Kwaku Jernigan MD Primary Care Provider Social History Tobacco Use Types Packs/Day Years Used Date Smoking Tobacco: Never Assessed Comments Unknown Sex and Gender Information Value Date Recorded Sex Assigned at Not on file Legal Sex Female 4:40 AM ORDER ADMINISTRATOR Gender Identity Not on file Sexual Orientation [...] - 1-dose 75+ series) 2030 Care Teams Dialysis Chief Equipment Technician Relationship Specialty Start [place] [address] [place] [address] PCP - General 10/11/00
--- NOTE | 2025-05-02 06:26 | WPDANESEPPF ---
Anes - Initial Pre Proc Eval Procedure: Operation Date: 05/02/25 07:30 Proposed Procedures p Right L3-4 Microdiscectomy - Myah Patterson MD Date/Time: 05/02/25 06:26 Surgeon: Myah Patterson MD Pre Op Diagnosis: lumbar disc herniation with radiculopathy Patient Data Age: 70 Gender: F Height: 1.6 m Weight: 58.3 kg Last Vital Signs Temp 36.5 C 04/18/25 13:16 Pulse 95 04/18/25 13:16 Resp 16 04/18/25 13:16 Pulse Ox 95 04/18/25 13:16 O2 Del Method Room Air 04/18/25 13:16 Allergies Allergy/AdvReac Type Severity Reaction Status Date / Time cimetidine (From [facility]) Allergy Swelling Verified 04/18/25 13:09 of Lip/Tongue/Throat alendronate sodium AdvReac Intermediate Muscle Pain Verified 04/18/25 13:09 Penicillins AdvReac Blister Verified 04/18/25 13:09 Home Medications ?Medication ?Instructions ?Recorded ?Confirmed ?Type cholecalciferol (vitamin D3) 25 1,000 unit PO DAILY #90 caps 04/23/19 04/18/25 Rx mcg (1,000 unit) capsule aspirin 81 mg chewable tablet 81 mg PO DAILY@0800 #30 tabs 11/26/21 04/18/25 Rx (Children's Aspirin) Held on 04/18/25. Instructions: .Provider Order fluticasone propionate 50 1 spray intranasal Q12H #16 grams 06/24/22 04/18/25 Rx mcg/actuation nasal spray,suspension (Flonase Allergy Relief) albuterol sulfate 90 mcg/actuation 1 inh inhalation Q4H PRN shortness 08/11/23 04/18/25 Rx aerosol inhaler of breath or wheezing #8.5 grams escitalopram oxalate 20 mg tablet 20 mg PO DAILY #90 tabs 08/01/24 04/18/25 Rx pravastatin 10 mg tablet See Rx Instructions .Route 01/18/25 04/18/25 Rx .COMPLEX #100 tabs alprazolam 0.25 mg tablet 0.25 mg PO BID PRN anxiety #180 05/01/25 Rx tabs Patient hx anesthesia problems: none Family hx anesthesia problems: none Results Review: All pre-operative results and documents have been reviewed as part of the pre-operative evaluation. [facility] Past Medical History Medical History (Updated 05/01/25 @ 12:23 by Zackery Arnold DO) Panic attack Bipolar disorder TIA (transient ischemic attack) Bulging disc Obstructive airway disease Impacted cerumen of both ears Grieving COPD (chronic obstructive pulmonary disease) Postmenopausal atrophic vaginitis Osteopenia Migraines Anxiety and depression Hyperlipemia Surgical History Surgical History (Reviewed 03/07/25 @ 14:03 by Shruthi Castellon [facility]) History of adenoidectomy (~1966) History of tonsillectomy (~1966) History of hysterectomy (~1984) Due to endometriosis with associated unilateral oophorectomy History of appendectomy (~1964) Family History Family History Father Acute myocardial infarction Alcoholism Cerebrovascular accident Mother Hypertension Sibling Alcoholism Sibling Alcoholism PCOS (polycystic ovarian syndrome) Son Anxiety Daughter Anxiety Social History Social History Social History: She lives at home with her small dog. She is . She raised 2 sons and 1 daughter. She is independent activities of daily living. She continues to smoke a pack of cigarettes per day and has done so since she was teenager. She denies any significant alcohol use. 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 Code status: Full code Smoking packs per day: 1 Smoking cigarettes per day: 20.0 Years smoked: 50 Smoking pack-years: 50.00 Smoking status: Current every day smoker Tobacco type: cigarettes Second hand tobacco smoke exposure: Yes Alcohol intake: never Substance use: never Substance use type: does not use Lack of Transportation: No Lack of Food: Never True Current Housing: I Have Housing Concerned About Future Housing: No Difficulty Paying Gas/Electric Bills: No Difficulty Paying for Meds: No Currently Unemployed: No Education: High School Diploma/GED Difficulty w/ Childcare or Family Care: No Living arrangements: alone Gender identity (if verbalized by the patient): Female Spiritual care concerns: No Anes - Eval Final PreProcedure Day of Procedure 05/02/25 06:26 Patient weight: normal Heart: regular rate and rhythm Lungs: clear to auscultation Airway: Mallampati scale class II Neurological: alert and oriented Last oral intake: >/= 8 hours ASA classification: III Emergent: no Anesthetic plan: proceed Anesthesia type and monitoring: general ETT and standard monitoring Results Review: All pre-operative results and documents have been reviewed as part of the pre-operative evaluation. Informed Consent: The patient's anesthetic plan and its attendant risks and benefits were discussed with the patient/family/POA. Questions were solicited and answers provided to the satisfaction of the patient/family/POA.
[2025-05-02] MEDS: LACTATED RINGERS 1,000 ML 30 ML IV CONT ×2 (06:35→09:24)
[2025-05-02 07:01] LABS: Sodium 138 mmol/L (137-145)
--- NOTE | 2025-05-02 07:15 | P.HP_ITS ---
H&P: HPI History of Present Illness Date/Time: 05/02/25 07:15 Chief Complaint: right leg pain Narrative: From 01/03: Ms. Strauss is a 69-year-old female with history of hyperlipidemia and TIA who presents for evaluation right leg pain. Her symptoms started several months ago primarily with a severe pain in her right hip. She went to physical therapy which she felt actually worsened her pain. She developed progressive radicular pain down the right leg following an L4 dermatome. She has paresthesias in the distal part of the leg in this distribution. She feels a generalized sense of weakness on the right side. She reports that her pain is so significant in the morning that she is unable to get to the bathroom in time, so she has started wearing Depends at night. She does not have any difficulty c ontrolling her bladder during the day. She denies any left-sided symptoms. She has tried Tylenol and ibuprofen for her pain. She has not yet seen Pain Management. From 03/07: Since I saw her last, she had 1 epidural steroid injection at L3-4 which was quite helpful for about 36 hours, following which her pain returned. She is scheduled to another injection on of this month which is targeting the right L4 nerve root. She denies any changes in her symptoms since I saw her last. She has since had cardiac testing since I saw her last which returned as normal. Review of Systems Review of Systems: All systems reviewed & are unremarkable except as noted in HPI and below PMFSH Past Medical History Medical History (Updated 05/01/25 @ 12:23 by Zackery Arnold, ) Panic attack Bipolar disorder TIA (transient ischemic attack) Bulging disc Obstructive airway disease Impacted cerumen of both ears Grieving COPD (chronic obstructive pulmonary disease) Postmenopausal atrophic vaginitis Osteopenia Migraines Anxiety and depression Hyperlipemia Surgical History Surgical History History of adenoidectomy (~1966) History of tonsillectomy (~1966) History of hysterectomy (~1984) Due to endometriosis with associated unilateral oophorectomy History of appendectomy (~1964) Family History Family History Father Acute myocardial infarction Alcoholism Cerebrovascular accident Mother Hypertension Sibling Alcoholism Sibling Alcoholism PCOS (polycystic ovarian syndrome) Son Anxiety Daughter Anxiety Social History Social History Social History: She lives at home with her small dog. She is . She raised 2 sons and 1 daughter. She is independent activities of daily living. She continues to smoke a pack of cigarettes per day and has done so since she was teenager. She denies any significant alcohol use. 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 Code status: Full code Smoking packs per day: 1 Smoking cigarettes per day: 20.0 Years smoked: 50 Smoking pack-years: 50.00 Smoking status: Current every day smoker Tobacco type: cigarettes Second hand tobacco smoke exposure: Yes Alcohol intake: never Substance use: never Substance use type: does not use Lack of Transportation: No Lack of Food: Never True Current Housing: I Have Housing Concerned About Future Housing: No Difficulty Paying Gas/Electric Bills: No Difficulty Paying for Meds: No Currently Unemployed: No Education: High School Diploma/GED Difficulty w/ Childcare or Family Care: No Living arrangements: alone Gender identity (if verbalized by the patient): Female Spiritual care concerns: No Meds Home Medications and Allergies Home Medications ?Medication ?Instructions ?Recorded ?Confirmed ?Type cholecalciferol (vitamin D3) 25 1,000 unit PO DAILY #9 0 caps 04/23/19 05/02/25 Rx mcg (1,000 unit) capsule aspirin 81 mg chewable tablet 81 mg PO DAILY@0800 #30 tabs 11/26/21 05/02/25 Rx (Children's Aspirin) Held on 04/18/25. Instructions: .Provider Order fluticasone propionate 50 1 spray intranasal Q12H #16 grams 06/24/22 05/02/25 Rx mcg/actuation nasal spray,suspension (Flonase Allergy Relief) albuterol sulfate 90 mcg/actuation 1 inh inhalation Q4 H PRN shortness 08/11/23 04/18/25 Rx aerosol inhaler of breath or wheezing #8.5 g azucena escitalopram oxalate 20 mg tablet 20 mg PO DAILY #90 t abs 08/01/24 05/02/25 Rx pravastatin 10 mg tablet See Rx Instructions .Route 0 01/18/25 05/02/25 Rx .COMPLEX #100 tabs alprazolam 0.25 mg tablet 0.25 mg PO BID PRN anxiety # 180 05/01/25 05/02/25 Rx tabs Allergies Allergy/AdvReac Type Severity Reaction Status Date / Time cimetidine (From [facility]) Allergy Swelling Verified 05/02/25 06:57 of Lip/Tongue/Throat alendronate sodium AdvReac Intermediate Muscle Pain Verified 05/02/25 06:57 Penicillins AdvReac Blister Verified 05/02/25 06:57 Vital Signs Vital Signs - 24 hr 05/02/25 06:10 Temperature 98.4 F Pulse Rate 80 Respiratory Rate 18 Blood Pressure 109/54 L Pulse Oximetry 96 Oxygen Delivery Room Air Exam Neuro: Other: General: -Well developed and well nourished. No a cute distress. Cooperative with exam. Mental status: -Awake and oriented to person, place, an d time. Affect is normal. -Fund of knowledge appropriate -Recent and remote memory are intact -Attention span and concentration appear normal -Language function is normal -There is no evidence of aphasia in conv ersational speech. Cranial nerves: -CN II: Visual orellana full to bedside co nfrontation -CN III, IV, : Pupils equal, round, an d reactive to light; extraocular movements, no ptosis, no nystagmus -CN V: Facial sensation intact in V1 thr ough V3 distributions -CN VII: Face symmetric -CN VIII: Hearing intact to conversation al speech -CN IX, X: Palate elevates symmetrically ; normal phonation -CN XI: Symmetric full strength of vicente ocleidomastoid and trapezius muscles -CN XII: Tongue protrudes midline Integumentary: -No obvious skin lesions or masses Motor: -Muscle tone normal without spasticity o f flaccidity. No atrophy. No fasciculations. -Right lower extremity: iliopsoas 5/5, q uadriceps 5/5, hamstrings 5/5, tibialis anterior 5/5, gastroc-soleus 5/5, EHL 5/5 -Left lower extremity: iliopsoas 5/5, qu adriceps 5/5, hamstrings 5/5, tibialis anterior 5/5, gastroc-soleus 5/5, EHL 5/5 Sensory: -Intact to light touch throughout -Normal proprioception throughout Reflexes: -1-2+ DTR's throughout -No Rojo's, clonus, or Babinski bilat erally Musculoskeletal: -Lumbar spine: no tenderness to palpatio n, no pain, and normal lumbosacral spine movements -[id number] test negative -Hip: normal range of motion, no crepitu s bilaterally. No pain reproduced on KORY or FAIR testing bilaterally -Knee: no instability, subluxation or la xity, and no crepitus bilaterally H&P: Results Labs Labs: BMP 05/02/25 06:31 Sodium 138 Assessment and Plan Assessment and plan (1) Lumbar disc herniation with radiculopathy: Code(s): M51.16 - Intervertebral disc disorders with radiculopathy, lumbar region Status: Acute Plan Ms. Strauss is a 70-year-old female with a several month history right leg pain following an L4 distribution for which she has had a full course of physical therapy and now one epidural steroid injection without long-lasting improvement. She is neurologically intact on physical exam. MRI lumbar spine most notably shows the central disc herniation at L3-4 causing moderate central and severe bilateral lateral recess stenosis. I reviewed the imaging with the patient and her daughter. We again discussed surgery in the form of right L3-4 microdiskectomy. She would like to proceed as discussed.
--- NOTE | 2025-05-02 07:15 | WPDHPUPDATE1 ---
History and Physical Update Update Date/Time: 05/02/25 07:15 History and Physical has been reviewed, including an updated exam of the patient. There are NO changes in the patient's condition. Risks, benefits, and alternatives have been discussed and questions answered. Patient agrees to proceed with procedure.
[2025-05-02] MEDS: ceFAZolin 2 GM in SODIUM CHLORIDE 0.9% IV 50 ML 100 ML IVPB (07:34)
--- NOTE | 2025-05-02 09:22 | W.PM.PROC2 ---
Procedure Note - Detailed Date of Procedure 05/02/25 Pre-op Diagnosis lumbar disc herniation with radiculopathy Post-op Diagnosis Same Procedure Performed 1. Right L3-4 microdiskectomy 2. Use of microscope for microsurgical dissection 3. Use of C-arm for fluoroscopy Surgeon Myah Patterson MD [employer] Jovany Anesthesia General Description of Procedure The patient was brought to the operating room, and general anesthesia was induced. The patient was placed prone on the Dioni frame, and all pressure points were padded. Compression devices were placed on the patient's calves. The C-arm was brought onto the field to localize the appropriate disc space and assist with incisional planning. The area was prepped and draped in usual sterile fashion. A time out was conducted, and pre-operative antibiotics were administered. Local anesthesia was injected into the planned incision. A skin incision was made with a 10-blade scalpel, and dissection was carried down with the monopolar cautery to open the fascia. The right lamina of L3 was exposed with the bovie. An upgoing curette was placed under the lamina, and the C-arm was brought in to confirm the correct level. A self-retaining retractor was placed. The currette was used to clear the space under the lamina. A high-speed drill was used to thin the lamina to the ligamentum flavum. A currette was used to separate the lamina from the ligament, and more bone was removed with a kerrison. A 4-penfield was used to separate the dura from the disc space, and a disc bulge was noted under the traversing nerve root. The dura was retracted medially, and a nerve hook was used to garcia the posterior longitudinal ligament to break up the disc herniation. A micropituitary was used to remove pieces of disc. A nerve hook and Julienne currette were alternately used to break up the disc which was removed with a micropituitary. The dorsal and ventral space under the nerve root appeared well decompressed. Hemostasis was achieved with the bovie, Floseal, and cottonoid patties. The area was copiously irrigated. No evidence of CSF leak was noted. The fascia was closed with 0-Vicryl in an interrupted fashion. The soft tissue was again copiously irrigated. The dermis was closed with 2-0 interrupted Vicryl. The skin was closed with 3-0 Vicryl then subcuticular 4-0 monocryl. Dermabond was placed over the incision. The patient was returned supine on the stretcher, extubated, and transferred to PACU without incident. Billing codes: 17913, 46110 Estimated Blood Loss 10 Drains No Packing No Pathology None sent Complications None Condition Stable Disposition PACU [facility] Billing Surgery - Charge Forward: Surgery Billing
[2025-05-02] MEDS: fentaNYL CITRATE INJ (*CRX) 100 MCG/2 ML VIAL 25 MCG IV PUSH (09:34)
== END 2025-05-02 12:04 | disposition home or self-care (01) ==
PROVIDERS: Anesthesiology; PCP Student in an Organized Health Care Education/Training Program; Visit Provider Neurological Surgery
PROC: (CPT 63005; principal; 2025-05-02 07:30)
DX: M51.16 Intervertebral disc disorders with radiculopathy, lumbar region (principal); E78.5 Hyperlipidemia, unspecified; J44.9 Chronic obstructive pulmonary disease, unspecified; F41.8 Other specified anxiety disorders; F41.0 Panic disorder [episodic paroxysmal anxiety]; F31.9 Bipolar disorder, unspecified; M85.88 Other specified disorders of bone density and structure, other site; F17.210 Nicotine dependence, cigarettes, uncomplicated; Z79.82 Long term (current) use of aspirin; Z79.51 Long term (current) use of inhaled steroids; Z98.890 Other specified postprocedural states; Z86.73 Personal history of transient ischemic attack (TIA), and cerebral infarction without residual deficits; Z82.49 Family history of ischemic heart disease and other diseases of the circulatory system
CPT/HCPCS: 63030; 36415; 84295; 99199; J0690; J0330; J1100; J1171; J2003; J2250; J2405; J2704; J3010; J7120